=== PATIENT | male | born 1960 | race Caucasian/White ===

== ENCOUNTER 2016-07-28 15:03 | Emergency (ER) | payer MEDICAID ==
--- NOTE | 2016-07-28 15:54 | EDM.PDOC ---
ED HPI NEURO - General Chief Complaint: Neuro Symptoms/Deficits Stated Complaint: CONFUSION Time Seen by Provider: 07/28/16 15:34 Source: Reports: Patient, Family, RN notes reviewed History Limitations: Reports: No limitations - History of Present Illness INITIAL COMMENTS - FREE TEXT/NARRATIVE: 56-year-old gentleman presents emergency department today with complaint of confusion states this happened today he couple hours ago he had awoken from sleep was confused in that he couldn't remember specific memory details about what he does for living with his does for living what task he had to do for the day, by the time he presents to the emergency room all his memories have returned he has no loss of memory he denies any focal neurologic deficit - Related Data Allergies/ADRs: Allergies Allergy/AdvReac Type Severity Reaction Status Date / Time morphine sulfate AdvReac Change Verified 10/27/15 14:05 [From MS Contin] Mental Status Home Meds: Home Meds Harley Cit/D3/K/Mag Ox/Stron/Bor [Theracal D2000] 400 - 500 mg PO BID 01/25/13 [ History] Citalopram Hydrobromide [Celexa] 40 mg PO DAILY 01/25/13 [History] Cyanocobalamin (Vitamin B-12) [B-12] 1,000 mcg PO DAILY 01/25/13 [History] Lisinopril 10 mg PO DAILY 01/25/13 [History] Multivitamin with Minerals [Multiple Vitamin] 1 tab PO DAILY 01/25/13 [History] Vitamin B Complex [B Complex] 100 mg PO DAILY 01/25/13 [History] amLODIPine [Norvasc] 5 mg PO BEDTIME 03/02/14 [History] sitaGLIPtin Phos/Metformin HCl [Janumet Xr 50-1,000 mg Tablet] 50 - 1,000 mg PO DAILY 03/02/14 [History] Aspirin [Adult Low Dose Aspirin EC] 81 mg PO DAILY 09/06/14 [History] Cholecalciferol (Vitamin D3) [Vitamin D3] 3,000 unit PO DAILY 09/06/14 [History] Acetaminophen [Tylenol] 650 mg PO Q6H PRN 01/27/15 [History] HYDROmorphone HCl [Exalgo] 32 mg PO DAILY 01/27/15 [History] Liraglutide [Victoza] 1.8 mg SUBCUT DAILY 01/27/15 [History] oxyCODONE [Oxycodone HCl] 10 mg PO Q4H PRN 04/29/15 [History] Amitriptyline [Elavil] 75 mg PO BEDTIME 05/27/15 [History] Cyclobenzaprine [Flexeril] 1 tab PO Q8H PRN 05/27/15 [History] Magnesium 1 tab PO ASDIRECTED 05/27/15 [History] Omeprazole 1 cap PO BEDTIME 05/27/15 [History] Simvastatin [Zocor] 1 tab PO DAILY 05/27/15 [History] Past Medical History Cardiovascular History: Reports: CAD, High cholesterol, Hypertension, Stents Other Respiratory History: uses CPAP Musculoskeletal History: Reports: Back pain, chronic Other Musculoskeletal History: Brown recluse spider bite in past Other Neuro History: balance issue after back fracture Psychiatric History: Reports: Anxiety Endocrine/Metabolic History: Reports: Diabetes, type II Hematologic History: Reports: B12 deficiency Other Dermatologic History: brown recluse bit on right mid-back, did have it surgerically repaired. - Past Surgical History Cardiovascular Surgical History: Reports: Coronary artery stent Other Cardiovascular Surgeries/Procedures: Cardiac stents x 3 GI Surgical History: Reports: Bariatric procedure Other Neurological Surgeries/Procedures: kiphroplasty. Lumbar procedure 30 to 60 days ago with hardware and fusion. Musculoskeletal Surgical History: Reports: Other (see below) Other Musculoskeletal Surgeries/Procedures:: ACLreconstruction, Achilles tendon surgery x3 fx leg broken back, BACK "SHOTS" INJECTED GLUE IN BACK Social & Family History - Family History Oncologic: Reports: Pancreatic - Tobacco Use Smoking Status *Q: Never Smoker Years of Tobacco use: 20 Used Tobacco, but Quit: Yes Month Tobacco Last Used: apr Second Hand Smoke Exposure: No - Caffeine Use Caffeine Use: Reports: Coffee, Soda - Alcohol Use Days Per Week of Alcohol Use: 1 Number of Drinks Per Day: 2 Total Drinks Per Week: 2 - Recreational Drug Use Recreational Drug Use: No ED ROS GENERAL - Review of Systems Review Of Systems: See Below Constitutional: Reports: no symptoms HEENT: Reports: No symptoms Respiratory: Reports: No Symptoms Cardiovascular: Reports: No symptoms GI/Abdominal: Reports: No symptoms : Reports: no symptoms Musculoskeletal: Reports: no symptoms Skin: Reports: no symptoms (And) Neurological: Reports: Confusion Psychiatric: Reports: No symptoms ED EXAM, NEURO - Physical Exam Exam: See Below Exam Limited By: No limitations General Appearance: alert, WD/WN, no apparent distress Respiratory/Chest: no respiratory distress, lungs clear, normal breath sounds, no accessory muscle use Cardiovascular: regular rate, rhythm, no murmur Course - Vital Signs Last Recorded V/S: Last Vital Signs Temp 97.3 F 07/28/16 15:25 Pulse 83 07/28/16 16:48 Resp 16 07/28/16 16:48 BP 146/90 H 07/28/16 16:48 Pulse Ox 99 07/28/16 16:48 - Orders/Labs/Meds Labs: Laboratory Tests 07/28/16 07/28/16 07/28/16 Range/Units 16:06 16:06 16:06 WBC 8.8 (4.5-11.0) K/uL RBC 5.00 (4.30-5.90) M/uL Hgb 14.9 (12.0-15.0) g/dL Hct 43.7 (40.0-54.0) % MCV 87 (80-98) fL MCH 30 (27-31) pg MCHC 34 (32-36) % Plt Count 271 (150-400) K/uL Neut % (Auto) 76 H (36-66) % Lymph % (Auto) 16 L (24-44) % [place] % (Auto) 7 H (2-6) % Eos % (Auto) 1 L (2-4) % Baso % (Auto) 0 (0-1) % Sodium 142 (140-148) mmol/L Potassium 4.6 (3.6-5.2) mmol/L Chloride 104 (100-108) mmol/L Carbon Dioxide 29 (21-32) mmol/L Anion Gap 9.3 (5.0-14.0) mmol/L BUN 15 D (7-18) mg/dL Creatinine 0.9 (0.8-1.3) mg/dL Est Cr Clr Drug Dosing 98.41 mL/min Estimated GFR (MDRD) > 60 (>60) Glucose 164 H (74-106) mg/dL Calcium 8.5 (8.5-10.1) mg/dL Total Bilirubin 0.4 D (0.2-1.0) mg/dL AST 31 D (15-37) U/L ALT 48 D (12-78) U/L Alkaline Phosphatase 97 (46-116) U/L CK-MB (CK-2) (0-3.6) mg/mL Troponin I (0.000-0.056) ng/mL C-Reactive Protein 0.11 (0.0-0.3) mg/dL Total Protein 7.5 (6.4-8.2) g/dL Albumin 4.2 (3.4-5.0) g/dL Globulin 3.3 (2.3-3.5) g/dL Albumin/Globulin Ratio 1.3 (1.2-2.2) Urine Color Urine Appearance Urine pH (4.5-8.0) Ur Specific [place] (1.008-1.030) Urine Protein (NEGATIVE) mg/dL Urine Glucose (UA) (NEGATIVE) mg/dL Urine Ketones (NEGATIVE) mg/dL Urine Occult Blood (NEGATIVE) Urine Nitrite (NEGAITVE) Urine Bilirubin (NEGATIVE) Urine Urobilinogen (NORMAL) mg/dL Ur Leukocyte Esterase (NEGATIVE) Urine RBC (0-5) Urine WBC (0-5) Ur Epithelial Cells Amorphous Sediment Urine Bacteria Urine Mucus 07/28/16 07/28/16 Range/Units 16:06 16:27 WBC (4.5-11.0) K/uL RBC (4.30-5.90) M/uL Hgb (12.0-15.0) g/dL Hct (40.0-54.0) % MCV (80-98) fL MCH (27-31) pg MCHC (32-36) % Plt Count (150-400) K/uL Neut % (Auto) (36-66) % Lymph % (Auto) (24-44) % [place] % (Auto) (2-6) % Eos % (Auto) (2-4) % Baso % (Auto) (0-1) % Sodium (140-148) mmol/L Potassium (3.6-5.2) mmol/L Chloride (100-108) mmol/L Carbon Dioxide (21-32) mmol/L Anion Gap (5.0-14.0) mmol/L BUN (7-18) mg/dL Creatinine (0.8-1.3) mg/dL Est Cr Clr Drug Dosing mL/min Estimated GFR (MDRD) (>60) Glucose (74-106) mg/dL Calcium (8.5-10.1) mg/dL Total Bilirubin (0.2-1.0) mg/dL AST (15-37) U/L ALT (12-78) U/L Alkaline Phosphatase (46-116) U/L CK-MB (CK-2) 1.2 (0-3.6) mg/mL Troponin I < 0.017 (0.000-0.056) ng/mL C-Reactive Protein (0.0-0.3) mg/dL Total Protein (6.4-8.2) g/dL Albumin (3.4-5.0) g/dL Globulin (2.3-3.5) g/dL Albumin/Globulin Ratio (1.2-2.2) Urine Color [place] Urine Appearance Slightly cloudy Urine pH 5.0 (4.5-8.0) Ur Specific [place] 1.025 (1.008-1.030) Urine Protein 30 H (NEGATIVE) mg/dL Urine Glucose (UA) Normal (NEGATIVE) mg/dL Urine Ketones 15 H (NEGATIVE) mg/dL Urine Occult Blood Negative (NEGATIVE) Urine Nitrite Negative (NEGAITVE) Urine Bilirubin Negative (NEGATIVE) Urine Urobilinogen 4 (NORMAL) mg/dL Ur Leukocyte Esterase Negative (NEGATIVE) Urine RBC 0-5 (0-5) Urine WBC 0-5 (0-5) Ur Epithelial Cells Few Amorphous Sediment Not seen Urine Bacteria Few Urine Mucus Few Departure - Departure Time of Disposition: 17:23 Disposition: Home, Self-Care 01 Condition: good Clinical Impression: Fugue Forms: ED Department Discharge Additional Instructions: Please followup with your primary care provider in 3-5 days if not better, please call return to the emergency department with worsening of symptoms. - Assessment/Plan Plan: Assessment Acuity = acute Site and laterality = shifting attention Etiology = suspicious for fugue Manifestations = none Location of injury = home Lab values = CBC, CMP unremarkable urinalysis specific gravity 1.025 consistent with intravascular volume depletion Plan He remained asymptomatic in the emergency department he does admit that he has not been going to counseling and rehabilitation as usual plan is to follow up with that and follow up with primary care as needed Patient was in agreement with the plan all questions were answered, they were instructed to return to the emergency department or call for worsening symptoms. This note was dictated using dragon voice recognition software please call with any questions.
[2016-07-28 16:48] VITALS: BP 146/90
== END 2016-07-28 17:29 | disposition home or self-care (01) ==
LOC: JP.ED 15:03
DX: R68.89 Other general symptoms and signs (principal); I25.10 Atherosclerotic heart disease of native coronary artery without angina pectoris; E78.00 Pure hypercholesterolemia, unspecified; I10 Essential (primary) hypertension; G89.29 Other chronic pain; M54.9 Dorsalgia, unspecified; E11.9 Type 2 diabetes mellitus without complications; Z87.891 Personal history of nicotine dependence; Z95.5 Presence of coronary angioplasty implant and graft; Z98.890 Other specified postprocedural states; Z79.899 Other long term (current) drug therapy; Z79.82 Long term (current) use of aspirin; Z88.5 Allergy status to narcotic agent
CPT/HCPCS: 36415; 80053; 81001; 82553; 84484; 85025; 86140; 99282; 99285

== ENCOUNTER 2017-08-31 15:31 | Emergency (ER) | payer MEDICARE ==
--- NOTE | 2017-08-31 16:15 | EDM.PDOC ---
Addendum entered and electronically signed by Michael Wilcox MD 08/31/17 22: 39: Hand X-ray reveals a fx of the proximal phalanx of the R thumb. A thumb spica splint was applied, ortho referral made. Original Note: <Michael Wilcox - Last Filed: 08/31/17 21:56> ED HPI GENERAL MEDICAL PROBLEM - General Chief Complaint: General Stated Complaint: MEDICAL VIA [facility] Time Seen by Provider: 08/31/17 16:12 - Related Data Allergies Allergy/AdvReac Type Severity Reaction Status Date / Time morphine sulfate AdvReac Change Verified 08/31/17 15:46 [From MS Contin] Mental Status Home Meds: Home Meds Harley Cit/D3/K/Mag Ox/Stron/Bor [Theracal D2000] 400 - 500 mg PO BID 01/25/13 [ History] Citalopram Hydrobromide [Celexa] 40 mg PO DAILY 01/25/13 [History] Cyanocobalamin (Vitamin B-12) [B-12] 1,000 mcg PO DAILY 01/25/13 [History] Lisinopril 10 mg PO DAILY 01/25/13 [History] Multivitamin with Minerals [Multiple Vitamin] 1 tab PO DAILY 01/25/13 [History] Vitamin B Complex [B Complex] 100 mg PO DAILY 01/25/13 [History] amLODIPine [Norvasc] 5 mg PO BEDTIME 03/02/14 [History] sitaGLIPtin Phos/Metformin HCl [Janumet Xr 50-1,000 mg Tablet] 50 - 1,000 mg PO DAILY 03/02/14 [History] Aspirin [Adult Low Dose Aspirin EC] 81 mg PO DAILY 09/06/14 [History] Cholecalciferol (Vitamin D3) [Vitamin D3] 3,000 unit PO DAILY 09/06/14 [History] Acetaminophen [Tylenol] 650 mg PO Q6H PRN 01/27/15 [History] Liraglutide [Victoza] 1.8 mg SUBCUT DAILY 01/27/15 [History] oxyCODONE [Oxycodone HCl] 10 mg PO Q4H PRN 04/29/15 [History] Amitriptyline [Elavil] 75 mg PO BEDTIME 05/27/15 [History] Magnesium 1 tab PO ASDIRECTED 05/27/15 [History] Omeprazole 1 cap PO BEDTIME 05/27/15 [History] Simvastatin [Zocor] 1 tab PO DAILY 05/27/15 [History] Course - Vital Signs Text/Narrative:: Had to wait for an extended period in the ER as the only person that was available to pick him up was his girlfriend and she had to work tonight until nearly 10:30 pm. Last Recorded V/S: Last Vital Signs Temp 35.3 C 08/31/17 15:42 Pulse 67 08/31/17 17:53 Resp 17 08/31/17 17:53 BP 141/60 H 08/31/17 21:38 Pulse Ox 93 L 08/31/17 17:53 - Orders/Labs/Meds Orders: Active Orders 24 hr Category Date Time Status Cardiac Monitoring [RC] .As Directed Care 08/31/17 16:50 Active Hand Comp Min 3V Rt [CR] Stat Exams 08/31/17 22:28 Taken Head wo Cont [CT] Stat Exams 08/31/17 16:10 Taken DRUG SCREEN, URINE [URCHEM] Stat Lab 08/31/17 18:24 Ordered UA W/MICROSCOPIC [URIN] Urgent Lab 08/31/17 18:24 Ordered Labs: Laboratory Tests 08/31/17 08/31/17 08/31/17 Range/Units 15:36 15:36 15:36 WBC 10.7 (4.5-11.0) K/uL RBC 4.61 (4.30-5.90) M/uL Hgb 14.1 (12.0-15.0) g/dL Hct 39.9 L (40.0-54.0) % MCV 87 (80-98) fL MCH 31 (27-31) pg MCHC 35 (32-36) % Plt Count 274 (150-400) K/uL Neut % (Auto) 70 H (36-66) % Lymph % (Auto) 22 L (24-44) % Webb % (Auto) 7 H (2-6) % Eos % (Auto) 1 L (2-4) % Baso % (Auto) 0 (0-1) % Sodium 131 L (140-148) mmol/L Potassium 3.7 (3.6-5.2) mmol/L Chloride 95 L (100-108) mmol/L Carbon Dioxide 21 (21-32) mmol/L Anion Gap 18.7 H (5.0-14.0) mmol/L BUN 11 (7-18) mg/dL Creatinine 0.6 L (0.8-1.3) mg/dL Est Cr Clr Drug Dosing 143.63 mL/min Estimated GFR (MDRD) > 60 (>60) Glucose 214 H (74-106) mg/dL Calcium 7.7 L (8.5-10.1) mg/dL Total Bilirubin 0.3 (0.2-1.0) mg/dL AST 42 H (15-37) U/L ALT 64 (12-78) U/L Alkaline Phosphatase 71 (46-116) U/L Total Protein 6.9 (6.4-8.2) g/dL Albumin 3.8 (3.4-5.0) g/dL Globulin 3.1 (2.3-3.5) g/dL Albumin/Globulin Ratio 1.2 (1.2-2.2) Urine Color Urine Appearance Urine pH (4.5-8.0) Ur Specific [place] (1.008-1.030) Urine Protein (NEGATIVE) mg/dL Urine Glucose (UA) (NEGATIVE) mg/dL Urine Ketones (NEGATIVE) mg/dL Urine Occult Blood (NEGATIVE) Urine Nitrite (NEGAITVE) Urine Bilirubin (NEGATIVE) Urine Urobilinogen (NORMAL) mg/dL Ur Leukocyte Esterase (NEGATIVE) Urine RBC (0-5) Urine WBC (0-5) Ur Epithelial Cells Amorphous Sediment Urine Bacteria Urine Mucus Urine Opiates Screen (NEGATIVE) Ur Oxycodone Screen (NEGATIVE) Urine Methadone Screen (NEGATIVE) Ur Propoxyphene Screen (NEGATIVE) Ur Barbiturates Screen (NEGATIVE) Ur Tricyclics Screen (NEGATIVE) Ur Phencyclidine Scrn (NEGATIVE) Ur Amphetamine Screen (NEGATIVE) U Methamphetamines Scrn (NEGATIVE) Urine MDMA Screen (NEGATIVE) U Benzodiazepines Scrn (NEGATIVE) U Cocaine Metab Screen (NEGATIVE) U Marijuana (THC) Screen (NEGATIVE) Ethyl Alcohol 199 mg/dL 08/31/17 08/31/17 Range/Units 18:24 18:24 WBC (4.5-11.0) K/uL RBC (4.30-5.90) M/uL Hgb (12.0-15.0) g/dL Hct (40.0-54.0) % MCV (80-98) fL MCH (27-31) pg MCHC (32-36) % Plt Count (150-400) K/uL Neut % (Auto) (36-66) % Lymph % (Auto) (24-44) % Webb % (Auto) (2-6) % Eos % (Auto) (2-4) % Baso % (Auto) (0-1) % Sodium (140-148) mmol/L Potassium (3.6-5.2) mmol/L Chloride (100-108) mmol/L Carbon Dioxide (21-32) mmol/L Anion Gap (5.0-14.0) mmol/L BUN (7-18) mg/dL Creatinine (0.8-1.3) mg/dL Est Cr Clr Drug Dosing mL/min Estimated GFR (MDRD) (>60) Glucose (74-106) mg/dL Calcium (8.5-10.1) mg/dL Total Bilirubin (0.2-1.0) mg/dL AST (15-37) U/L ALT (12-78) U/L Alkaline Phosphatase (46-116) U/L Total Protein (6.4-8.2) g/dL Albumin (3.4-5.0) g/dL Globulin (2.3-3.5) g/dL Albumin/Globulin Ratio (1.2-2.2) Urine Color Yellow Urine Appearance Clear Urine pH 5.0 (4.5-8.0) Ur Specific [place] 1.010 (1.008-1.030) Urine Protein Negative (NEGATIVE) mg/dL Urine Glucose (UA) 1000 H (NEGATIVE) mg/dL Urine Ketones Negative (NEGATIVE) mg/dL Urine Occult Blood Negative (NEGATIVE) Urine Nitrite Negative (NEGAITVE) Urine Bilirubin Negative (NEGATIVE) Urine Urobilinogen Normal (NORMAL) mg/dL Ur Leukocyte Esterase Negative (NEGATIVE) Urine RBC Not seen (0-5) Urine WBC Not seen (0-5) Ur Epithelial Cells Rare Amorphous Sediment Not seen Urine Bacteria Not seen Urine Mucus Not seen Urine Opiates Screen Negative (NEGATIVE) Ur Oxycodone Screen Positive H (NEGATIVE) Urine Methadone Screen Negative (NEGATIVE) Ur Propoxyphene Screen Negative (NEGATIVE) Ur Barbiturates Screen Negative (NEGATIVE) Ur Tricyclics Screen Negative (NEGATIVE) Ur Phencyclidine Scrn Negative (NEGATIVE) Ur Amphetamine Screen Negative (NEGATIVE) U Methamphetamines Scrn Negative (NEGATIVE) Urine MDMA Screen Negative (NEGATIVE) U Benzodiazepines Scrn Negative (NEGATIVE) U Cocaine Metab Screen Negative (NEGATIVE) U Marijuana (THC) Screen Negative (NEGATIVE) Ethyl Alcohol mg/dL Meds: Medications Discontinued Medications Generic Name Dose Route Start Last Admin Trade Name Freq PRN Reason Stop Dose Admin Sodium Chloride 1,000 mls @ 999 mls/hr 08/31/17 17:30 08/31/17 18:00 Normal Saline IV 999 mls/hr ASDIRECTED FERNANDA Administration Departure - Departure Time of Disposition: 22:25 Disposition: Home, Self-Care 01 Condition: Good Clinical Impression: Overuse of medication Alcohol intoxication Qualifiers: Complication of substance-induced condition: with unspecified complication Qualified Code(s): F10.929 - Alcohol use, unspecified with intoxication, unspecified Fall Qualifiers: Encounter type: initial encounter Qualified Code(s): W19.XXXA - Unspecified fall, initial encounter Clinical Impression: (Ruled Out): Noncompliance with medication treatment due to overuse of medication - Discharge Information Instructions: Accidental Overdose, Alcohol Intoxication, [id number], Metacarpal Fracture, [id number], Fall Prevention in the Home Referrals: PCP,None [Primary Care Provider] - Forms: ED Department Discharge Additional Instructions: Do not take more of your amitryptyline than is recommended by your doctor. Do not drink alcohol when taking your medications. Recheck with your provider next week, call for an appt. Follow up with orthopedics next week. Wear your splint at all times. No use of the R hand. Ibuprofen or acetaminophen as needed for pain relief. - My Orders Last 24 Hours: My Active Orders 08/31/17 16:10 Head wo Cont [CT] Stat 08/31/17 16:50 Cardiac Monitoring [RC] .As Directed 08/31/17 18:24 DRUG SCREEN, URINE [URCHEM] Stat UA W/MICROSCOPIC [URIN] Urgent - Assessment/Plan Last 24 Hours: My Active Orders 08/31/17 16:10 Head wo Cont [CT] Stat 08/31/17 16:50 Cardiac Monitoring [RC] .As Directed 08/31/17 18:24 DRUG SCREEN, URINE [URCHEM] Stat UA W/MICROSCOPIC [URIN] Urgent <Lucy Delgado - Last Filed: 09/01/17 08:00> ED HPI GENERAL MEDICAL PROBLEM - General Source of Information: Reports: Patient History Limitations: Reports: No Limitations - History of Present Illness INITIAL COMMENTS - FREE TEXT/NARRATIVE: pt arrived with a history of being at the [facility] today. He had about 7 drinks and he went to leave he passed out and fell to the ground without breaking his fall. He did loose control of hais bladder and did soil himself. There was no definite seizure activity noted. Onset: Today, Sudden Duration: Hour(s):, Other (Pt is awake and answering questions. ) Location: Reports: Head, Other (pt has swelling over the rt cheek area. ) Associated Symptoms: Reports: Nausea/Vomiting Past Medical History - Past Health History Medical/Surgical History: Denies Medical/Surgical History HEENT History: Reports: Impaired Vision Cardiovascular History: Reports: CAD, High Cholesterol, Hypertension, Stents Respiratory History: Reports: Sleep Apnea Other Respiratory History: uses CPAP Musculoskeletal History: Reports: Back Pain, Chronic, Fracture Other Musculoskeletal History: Brown recluse spider bite in past Neurological History: Reports: Other (See Below) Other Neuro History: balance issue after back fracture. spinal fracture Psychiatric History: Reports: Anxiety Endocrine/Metabolic History: Reports: Diabetes, Type II Hematologic History: Reports: B12 Deficiency Other Dermatologic History: brown recluse bit on right mid-back, did have it surgerically repaired/debrieded. - Past Surgical History Cardiovascular Surgical History: Reports: Coronary Artery Stent GI Surgical History: Reports: Bariatric Procedure Other Neurological Surgeries/Procedures: kiphroplasty. Lumbar procedure with hardware and fusion x 3. Musculoskeletal Surgical History: Reports: Arthroscopic Knee, Other (See Below) Other Musculoskeletal Surgeries/Procedures:: achilles tendon surgery Social & Family History - Family History Oncologic: Reports: Pancreatic - Tobacco Use Smoking Status *Q: Never Smoker - Caffeine Use Caffeine Use: Reports: Coffee, Soda - Alcohol Use Days Per Week of Alcohol Use: 2 Number of Drinks Per Day: 4 Total Drinks Per Week: 8 - Recreational Drug Use Recreational Drug Use: Yes Recreational Drug Type: Reports: Marijuana/Hashish Recreational Drug Use Frequency: Not Used In Over 6 Months ED ROS GENERAL - Review of Systems Review Of Systems: See Below Constitutional: Reports: No Symptoms HEENT: Reports: Other (pt has ) Respiratory: Reports: No Symptoms Cardiovascular: Reports: No Symptoms Endocrine: Reports: No Symptoms GI/Abdominal: Reports: Nausea, Vomiting : Reports: No Symptoms Musculoskeletal: Reports: No Symptoms Skin: Reports: No Symptoms ED EXAM, GENERAL - Physical Exam Exam: See Below Free Text/Narrative:: pt arrived after being at the [facility] and leaving after having about 7 drinks. He went to the parking lot and feel straight down and hit his face. Exam Limited By: No Limitations General Appearance: Alert, Other (PUPILS LARGE BUT EQUAL AND REACTIVE. ) Ears: Normal TMs Nose: Normal Inspection Throat/Mouth: Normal Inspection Head: Other (PT HAS A BRUISE ON HIS RT CHEEK. ) Neck: Normal Inspection Respiratory/Chest: No Respiratory Distress Cardiovascular: Regular Rate, Rhythm GI/Abdominal: Soft, Non-Tender (Male) Exam: Deferred Rectal (Males) Exam: Deferred Back Exam: Normal Inspection Extremities: Other (PT HAS SOME ABRASIONS ON BOTH KNEES. ) Neurological: Alert, Slow to Respond Psychiatric: Flat Affect Course - Orders/Labs/Meds Meds: Medications Discontinued Medications Generic Name Dose Route Start Last Admin Trade Name Freq PRN Reason Stop Dose Admin Sodium Chloride 1,000 mls @ 999 mls/hr 08/31/17 17:30 08/31/17 18:00 Normal Saline IV 999 mls/hr ASDIRECTED [facility] Administration - Re-Assessments/Exams Free Text/Narrative Re-Assessment/Exam: 08/31/17 17:41 CAT SCAN OF THE HEAD DID NOT SHOW ACUTE FINDINGS. hE HAS A BRUIS ON HIS RT CHEEK AND THE ORBIT LOOKS GOOD. hE TOLD ME LATER THAT HE HAD TAKEN 4 ELAVIL 75 BECAUSE HE WANTED TO TAKE A NAP THIS AFTERNOON BUT INSTEAD HE WENT TO THE [facility] AND HAD APROX 7 DRINKS. hIS ETOH LEVEL WAS GREATER THN 2. hIS LAST TETANUS WAS IN 3013. 09/01/17 07:58 Once the pt woke up he was noted to have a painful rt thumb. an xray was obtained which showed a fracture of the proximal phalanx near the MP joint. He was placed in a thumb spika, he will follow up with this fracture.
--- NOTE | 2017-08-31 17:08 | CR ---
Sinus Less 3V INDICATION: blow to rt cheek need to look at the orbit. COMPARISON: None FINDINGS: 2 views. No evidence of orbital fractures on these views. Visualized paranasal sinuses are clear.
[2017-08-31] MEDS ORDERED: Sodium Chloride 0.9% 1,000 ML IV SCH (17:30)
[2017-08-31 21:38] VITALS: BP 141/60
--- NOTE | 2017-09-01 09:16 | CR ---
Hand Comp Min 3V Rt INDICATION: pain after a fall COMPARISON: None FINDINGS: 3 views. There is a fracture at the base of the first metacarpal with mild displacement. Bony fragments projected along the dorsal aspect of the distal radius on the lateral view appear we ll-corticated and may be due to old trauma. Please correlate clinically for tenderness over this area . There are vascular calcifications and degenerative change.
== END 2017-08-31 23:01 | disposition home or self-care (01) ==
LOC: JP.ED 15:31
DX: S80.212A Abrasion, left knee, initial encounter (principal); S80.211A Abrasion, right knee, initial encounter; F10.129 Alcohol abuse with intoxication, unspecified; Z91.14 Patient's other noncompliance with medication regimen; Z88.5 Allergy status to narcotic agent; Z79.899 Other long term (current) drug therapy; Z79.82 Long term (current) use of aspirin; W19.XXXA Unspecified fall, initial encounter
CPT/HCPCS: 29125; 36415; 70210; 70450; 73130; 80053; 80305; 81001; 85025; 99285; G0480; J7030

== ENCOUNTER 2018-07-10 13:07 | Emergency (ER) | payer MEDICARE ==
--- NOTE | 2018-07-10 13:52 | EDM.PDOC ---
ED HPI GENERAL MEDICAL PROBLEM - General Chief Complaint: General Stated Complaint: SOB/ CHEST CONGESTION Time Seen by Provider: 07/10/18 13:44 Source of Information: Reports: Patient, Old Records, Provider, RN Notes Reviewed History Limitations: Reports: No Limitations - History of Present Illness INITIAL COMMENTS - FREE TEXT/NARRATIVE: 58-year-old gentleman presents emergency department day for further evaluation, he was evaluated in clinic at which time thought to be short of breath chest x- ray was done shows that he has a right upper lung mass pneumonia versus malignancy also does have abnormal white count peripheral smear does not reveal any pathology he is not sure why he is here Lower Back Pain Score (Numeric/FACES): 5 - Related Data Allergies Allergy/AdvReac Type Severity Reaction Status Date / Time morphine sulfate AdvReac Change Verified 07/10/18 13:30 [From MS Morales] Mental Status Home Meds: Home Meds Harley Cit/D3/K/Mag Ox/Stron/Bor [Theracal D2000] 400 - 500 mg PO BID 01/25/13 [ History] Citalopram Hydrobromide [Celexa] 40 mg PO DAILY 01/25/13 [History] Cyanocobalamin (Vitamin B-12) [B-12] 1,000 mcg PO DAILY 01/25/13 [History] Lisinopril 10 mg PO DAILY 01/25/13 [History] Multivitamin with Minerals [Multiple Vitamin] 1 tab PO DAILY 01/25/13 [History] Vitamin B Complex [B Complex] 100 mg PO DAILY 01/25/13 [History] amLODIPine [Norvasc] 5 mg PO BEDTIME 03/02/14 [History] sitaGLIPtin Phos/Metformin HCl [Janumet Xr 50-1,000 mg Tablet] 50 - 1,000 mg PO BID 03/02/14 [History] Aspirin [Adult Low Dose Aspirin EC] 325 mg PO DAILY 09/06/14 [History] Cholecalciferol (Vitamin D3) [Vitamin D3] 3,000 unit PO DAILY 09/06/14 [History] Acetaminophen [Tylenol] 650 mg PO Q6H PRN 01/27/15 [History] oxyCODONE [Oxycodone HCl] 10 mg PO Q4H PRN 04/29/15 [History] Amitriptyline [Elavil] 75 mg PO BEDTIME 05/27/15 [History] Magnesium 1 tab PO DAILY 05/27/15 [History] Omeprazole 1 cap PO BEDTIME 05/27/15 [History] Simvastatin [Zocor] 1 tab PO DAILY 05/27/15 [History] Past Medical History HEENT History: Reports: Impaired Vision Cardiovascular History: Reports: CAD, High Cholesterol, Hypertension, Stents Respiratory History: Reports: Sleep Apnea Other Respiratory History: uses CPAP Musculoskeletal History: Reports: Back Pain, Chronic, Fracture Other Musculoskeletal History: Brown recluse spider bite in past Neurological History: Reports: Other (See Below) Other Neuro History: balance issue after back fracture. spinal fracture Psychiatric History: Reports: Anxiety Endocrine/Metabolic History: Reports: Diabetes, Type II Hematologic History: Reports: B12 Deficiency Other Dermatologic History: brown recluse bit on right mid-back, did have it surgerically repaired/debrieded. - Infectious Disease History Infectious Disease History: Reports: Chicken Pox, Measles, Mumps - Past Surgical History Cardiovascular Surgical History: Reports: Coronary Artery Stent GI Surgical History: Reports: Bariatric Procedure Other Neurological Surgeries/Procedures: kiphroplasty. Lumbar procedure with hardware and fusion x 3. Musculoskeletal Surgical History: Reports: Arthroscopic Knee, Other (See Below) Other Musculoskeletal Surgeries/Procedures:: achilles tendon surgery Social & Family History - Family History Oncologic: Reports: Pancreatic - Tobacco Use Smoking Status *Q: Never Smoker Second Hand Smoke Exposure: No - Caffeine Use Caffeine Use: Reports: Coffee, Energy Drinks, Soda, Tea - Alcohol Use Days Per Week of Alcohol Use: 1 Number of Drinks Per Day: 3 Total Drinks Per Week: 3 - Recreational Drug Use Recreational Drug Use: No ED ROS GENERAL - Review of Systems Review Of Systems: See Below Constitutional: Reports: Weakness, Weight Loss. Denies: Fever, Chills HEENT: Reports: No Symptoms Respiratory: Reports: Shortness of Breath. Denies: Wheezing, Cough, Sputum Cardiovascular: Reports: No Symptoms GI/Abdominal: Reports: No Symptoms : Reports: No Symptoms Musculoskeletal: Reports: No Symptoms Skin: Reports: No Symptoms Neurological: Reports: No Symptoms ED EXAM, GENERAL - Physical Exam Exam: See Below Exam Limited By: No Limitations General Appearance: Alert, WD/WN, No Apparent Distress Respiratory/Chest: No Respiratory Distress, Lungs Clear, Normal Breath Sounds, No Accessory Muscle Use, Chest Non-Tender Cardiovascular: Regular Rate, Rhythm, No Murmur GI/Abdominal: Soft, Non-Tender Course - Vital Signs Last Recorded V/S: Last Vital Signs Temp 95.5 F 07/10/18 13:43 Pulse 76 07/10/18 13:43 Resp 20 07/10/18 13:43 BP 151/85 H 07/10/18 13:43 Pulse Ox 98 07/10/18 13:43 - Orders/Labs/Meds Orders: Active Orders 24 hr Category Date Time Status Sodium Chloride 0.9% [Normal Saline] 1,000 ml Med 07/10/18 15:45 Active IV ASDIRECTED Medication Orders Sodium Chloride (Normal Saline) 1,000 mls @ 999 mls/hr IV ASDIRECTED FERNANDA Last Admin: 07/10/18 15:49 Dose: 999 mls/hr Labs: Laboratory Tests 07/10/18 Range/Units 13:57 Sodium 137 L (140-148) mmol/L Potassium 4.6 (3.6-5.2) mmol/L Chloride 103 (100-108) mmol/L Carbon Dioxide 25 (21-32) mmol/L Anion Gap 13.6 (5.0-14.0) mmol/L BUN 20 H D (7-18) mg/dL Creatinine 0.7 L (0.8-1.3) mg/dL Est Cr Clr Drug Dosing 117.83 mL/min Estimated GFR (MDRD) > 60 (>60) Glucose 91 (74-106) mg/dL Calcium 8.4 L (8.5-10.1) mg/dL Total Bilirubin 0.3 (0.2-1.0) mg/dL AST 12 L (15-37) U/L ALT 15 D (12-78) U/L Alkaline Phosphatase 81 (46-116) U/L C-Reactive Protein 12.13 H (0.0-0.3) mg/dL Total Protein 6.4 (6.4-8.2) g/dL Albumin 2.1 L (3.4-5.0) g/dL Globulin 4.3 H (2.3-3.5) g/dL Albumin/Globulin Ratio 0.5 L (1.2-2.2) Meds: Medications Generic Name Dose Route Start Last Admin Trade Name Freq PRN Reason Stop Dose Admin Sodium Chloride 1,000 mls @ 999 mls/hr 07/10/18 15:45 07/10/18 15:49 Normal Saline IV 999 mls/hr ASDIRECTED FERNANDA Administration Discontinued Medications Generic Name Dose Route Start Last Admin Trade Name Farida PRN Reason Stop Dose Admin Sodium Chloride 75 mls @ 3.5 mls/sec 07/10/18 13:56 Normal Saline IV 07/10/18 13:57 ONETIME ONE Iopamidol 100 ml 07/10/18 14:00 Isovue-300 (61%) IV 07/10/18 14:01 . DIRECTED FERNANDA Sodium Chloride 10 ml 07/10/18 13:56 07/10/18 14:22 Saline Flush FLUSH 07/10/18 13:57 10 ml ONETIME ONE Administration Departure - Departure Time of Disposition: 15:58 Disposition: Home, Self-Care 01 Condition: Fair Clinical Impression: Cavitating mass in right upper lung lobe - Discharge Information Referrals: Alyssia Gill PA [Primary Care Provider] - Forms: ED Department Discharge Additional Instructions: Please report for your needle biopsy on Monday, your primary care provider will get the results on Monday an appointment for you will be set up with Dr. Watts on , call or return emergency department worsening of symptoms - My Orders Last 24 Hours: My Active Orders 07/10/18 15:45 Sodium Chloride 0.9% [Normal Saline] 1,000 ml IV ASDIRECTED - Assessment/Plan Last 24 Hours: My Active Orders 07/10/18 15:45 Sodium Chloride 0.9% [Normal Saline] 1,000 ml IV ASDIRECTED Plan: Assessment Acuity = acute Site and laterality = lung mass right upper lobe Etiology = infectious versus neoplastic Manifestations = dyspnea Location of injury = Home Lab values = CT scan describes a lung mass above Plan He is set up for a CT-guided lung biopsy Monday morning 8 AM, called discussed case with Dr. Watts [place] 1530 Dr. Watts will see him July 19 for further evaluation. Also discussed the case with his primary care provider Nedra Gill his pathology will be available on Monday if the pathology shows neoplastic tissue he will be set up for a PET scan prior to Dr. Watts's appointment This note was dictated using [employer] voice recognition software please call with any questions on syntax or grammar.
[2018-07-10] MEDS ORDERED: Sodium Chloride 0.9% 10 ML Syringe FLUSH ONE (13:56)
[2018-07-10] MEDS ORDERED: Sodium Chloride 0.9% 75 ML IV ONE (13:56)
[2018-07-10] MEDS ORDERED: Iopamidol 612 MG/ML 100 ML Bottle IV SCH (14:00)
--- NOTE | 2018-07-10 15:31 | CRLCT ---
INDICATION: Cough. Right upper lobe mass. TECHNIQUE: CT chest without contrast. COMPARISON: June 11, 2013. FINDINGS: Lungs and pleural: There is a 6 cm masslike infiltrate in the right upper lobe with central cavitation and air bronchograms. This measures approximately 7 x 6 cm as measured on series 3, image 27. Small patchy ill-defined infiltrates are surrounding this mass. Numerous small ground-glass infiltrates are also scattered throughout both lungs. No pleural effusions, pleural thickening, or pneumothorax. Heart and vasculature: Heart size is normal. Thoracic aorta and pulmonary artery are normal in caliber.Coronary artery atherosclerosis is present. Lymph nodes/mediastinum: No mediastinal, hilar, or axillary adenopathy. Thyroid gland is normal. Chest wall: No masses. Upper abdomen: There are postsurgical changes involving the stomach. Otherwise unremarkable. Bones: Unremarkable for age. IMPRESSION: A 6 cm masslike infiltrate with central cavitation and air bronchograms is in the right upper lobe. Smaller patchy infiltrates are scattered throughout both lungs but most prevalent around the right upper lobe mass. This likely represents an infectious process. However, a neoplasm is not excluded. Pulmonary consultation is recommended for management of these findings. Dictated by Dominik Gutierres MD @ 07/10/2018 3:29:44 PM Please note that all CT scans at this facility use dose modulation, iterative reconstruction, and/or weight-based dosing when appropriate to reduce radiation dose to as low as reasonably achievable. Dictated by: Dominik Gutierres MD @ 07/10/2018 15:29:53 (Electronically Signed)
[2018-07-10] MEDS ORDERED: Sodium Chloride 0.9% 1,000 ML IV SCH (15:45)
[2018-07-10 16:44] VITALS: BP 148/84
== END 2018-07-10 16:45 | disposition home or self-care (01) ==
LOC: JP.ED 13:07
DX: R91.8 Other nonspecific abnormal finding of lung field (principal); I10 Essential (primary) hypertension; E78.00 Pure hypercholesterolemia, unspecified; F41.9 Anxiety disorder, unspecified; E11.9 Type 2 diabetes mellitus without complications; Z79.82 Long term (current) use of aspirin; Z79.899 Other long term (current) drug therapy; Z88.5 Allergy status to narcotic agent
CPT/HCPCS: 36415; 71260; 80053; 86140; 96360; 99285; J7030; Q9967

== ENCOUNTER → 2018-08-15 | Outpatient (CLI) | payer MEDICARE ==
--- NOTE | 2018-08-15 10:13 | CRLCT ---
INDICATION: Lung abscess TECHNIQUE: CT chest without contrast. COMPARISON: July 30, 2018 FINDINGS: Lungs and pleural: Interval decrease in size of the previously seen right upper lobe pulmonary abscess. The soft tissue thickening in this area has improved. Air bronchograms persist. Central cavitation is unchanged. Remainder of the lungs are clear. No pleural effusions, pleural thickening, or pneumothorax. Heart and vasculature: Heart size is normal. Thoracic aorta and pulmonary artery are normal in caliber.Coronary artery atherosclerosis is present. Lymph nodes/mediastinum: No mediastinal, hilar, or axillary adenopathy. Thyroid gland is normal. Chest wall: No masses. Upper abdomen: Normal. Bones: Unremarkable for age. IMPRESSION: Persistent but improved right upper lobe pulmonary abscess. No other acute findings or changes from the prior exam. Please note that all CT scans at this facility use dose modulation, iterative reconstruction, and/or weight-based dosing when appropriate to reduce radiation dose to as low as reasonably achievable. Dictated by Dominik Gutierres MD @ Aug 15 2018 9:56AM Signed by Dr. Dominik Gutierres @ Aug 15 2018 10:11AM
== END ==
LOC: JP.CT 08:28
PROVIDERS: ATTEND Surgery
DX: J85.2 Abscess of lung without pneumonia (principal)
CPT/HCPCS: 71250

== ENCOUNTER 2018-09-13 08:16 | Emergency (ER) | payer MEDICARE ==
[2018-09-13] MEDS ORDERED: HYDROmorphone 1 MG/ML Syringe IVPUSH ONE ×2 (08:49→10:03)
--- NOTE | 2018-09-13 08:56 | EDM.PDOC ---
ED HPI GENERAL MEDICAL PROBLEM - General Chief Complaint: Abdominal Pain Stated Complaint: ABD PAIN Time Seen by Provider: 09/13/18 08:40 Source of Information: Reports: Patient, Old Records, RN History Limitations: Reports: No Limitations - History of Present Illness INITIAL COMMENTS - FREE TEXT/NARRATIVE: 58 yo male s/p gastric bypass remotely presents with RUQ abdominal pain that began last evening at rest and kept him awake most of the night. No hx of other abdominal surgeries. No fever, constipation, diarrhea or nausea. Has not eaten today. Onset: Sudden Onset Date: 09/12/18 Duration: Hour(s):, Constant Location: Reports: Abdomen Quality: Reports: Ache, Pressure Severity: Moderate Improves with: Reports: Other (sitting up) Worsens with: Reports: Other (lying flat) Context: Reports: Other (see HPI) Associated Symptoms: Reports: Loss of Appetite. 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) (none) Right Lower Abdomen Pain Score (Numeric/FACES): 9 - Related Data Allergies Allergy/AdvReac Type Severity Reaction Status Date / Time morphine sulfate AdvReac Change Verified 09/13/18 08:32 [From MS Contin] Mental Status Home Meds: Home Meds Harley Cit/D3/K/Mag Ox/Stron/Bor [Theracal D2000] 400 - 500 mg PO BID 01/25/13 [ History] Lisinopril 10 mg PO DAILY 01/25/13 [History] Multivitamin with Minerals [Multiple Vitamin] 1 tab PO DAILY 01/25/13 [History] Vitamin B Complex [B Complex] 100 mg PO DAILY 01/25/13 [History] amLODIPine [Norvasc] 10 mg PO BEDTIME 03/02/14 [History] Aspirin [Adult Low Dose Aspirin EC] 325 mg PO DAILY 09/06/14 [History] Cholecalciferol (Vitamin D3) [Vitamin D3] 3,000 unit PO DAILY 09/06/14 [History] Magnesium 250 mg PO DAILY 05/27/15 [History] Omeprazole 40 mg PO BEDTIME 05/27/15 [History] Simvastatin [Zocor] 10 mg PO DAILY 05/27/15 [History] Carvedilol 50 mg PO DAILY 07/13/18 [History] FLUoxetine HCl [Prozac] 20 mg PO DAILY 07/13/18 [History] Ferrous Fumarate [Hemocyte] 324 mg PO DAILY 07/13/18 [History] oxyCODONE HCl/Acetaminophen [Endocet 10-325 mg Tablet] 1 each PO Q8HR PRN [History] traZODone HCl [Trazodone HCl] 100 mg PO BEDTIME 07/13/18 [History] Past Medical History - Past Health History Medical/Surgical History: Denies Medical/Surgical History HEENT History: Reports: Impaired Vision Cardiovascular History: Reports: CAD, High Cholesterol, Hypertension, Stents Respiratory History: Reports: Sleep Apnea Other Respiratory History: uses CPAP Musculoskeletal History: Reports: Back Pain, Chronic, Fracture Other Musculoskeletal History: Brown recluse spider bite in past Neurological History: Reports: Other (See Below) Other Neuro History: balance issue after back fracture. spinal fracture Psychiatric History: Reports: Anxiety Endocrine/Metabolic History: Reports: Diabetes, Type II Hematologic History: Reports: B12 Deficiency Other Dermatologic History: brown recluse bit on right mid-back, did have it surgerically repaired/debrieded. - Infectious Disease History Infectious Disease History: Reports: Chicken Pox, Measles, Mumps - Past Surgical History Cardiovascular Surgical History: Reports: Coronary Artery Stent GI Surgical History: Reports: Bariatric Procedure Other Neurological Surgeries/Procedures: kiphroplasty. Lumbar procedure with hardware and fusion x 3. Musculoskeletal Surgical History: Reports: Arthroscopic Knee, Other (See Below) Other Musculoskeletal Surgeries/Procedures:: achilles tendon surgery Social & Family History - Family History Oncologic: Reports: Pancreatic - Tobacco Use Smoking Status *Q: Former Smoker Years of Tobacco use: 10 Used Tobacco, but Quit: Yes Month/Year Tobacco Last Used: 25 years ago - Caffeine Use Caffeine Use: Reports: Coffee, Soda Caffeine Use Comment: 1 cup per day, 3 sodas a day - Alcohol Use Days Per Week of Alcohol Use: 1 Number of Drinks Per Day: 2 Total Drinks Per Week: 2 - Recreational Drug Use Recreational Drug Use: No ED ROS GENERAL - Review of Systems Review Of Systems: See Below Constitutional: Reports: Decreased Appetite HEENT: Reports: No Symptoms Respiratory: Reports: No Symptoms Cardiovascular: Reports: No Symptoms Endocrine: Reports: No Symptoms GI/Abdominal: Reports: Abdominal Pain. Denies: Black Stool, Bloody Stool, Constipation, Diarrhea, Decreased Appetite, Distension, Flatus, Hematemesis, Hematochezia, Melena, Nausea, Vomiting : Reports: No Symptoms Musculoskeletal: Reports: No Symptoms Skin: Reports: No Symptoms Neurological: Reports: No Symptoms Psychiatric: Reports: No Symptoms ED EXAM, GI/ABD - Physical Exam Exam: See Below Exam Limited By: No Limitations General Appearance: Alert, WD/WN, No Apparent Distress Eyes: Bilateral: Normal Appearance Ears: Normal External Exam, Normal Canal, Hearing Grossly Normal Nose: Normal Inspection, No Blood Throat/Mouth: Normal Inspection, Normal Lips, Normal Oropharynx, Normal Voice, No Airway Compromise Head: Atraumatic, Normocephalic Neck: Normal Inspection Respiratory/Chest: No Respiratory Distress, Lungs Clear, Normal Breath Sounds, No Accessory Muscle Use Cardiovascular: Regular Rate, Rhythm, No Edema GI/Abdominal Exam: Soft, No Distention, Tender (RUQ), Abnormal Bowel Sounds ( decreased). No: Normal Bowel Sounds, Non-Tender, No Mass, Distended, Guarding, Rigid, Rebound Back Exam: Normal Inspection. No: CVA Tenderness (R), CVA Tenderness (L) Extremities: Normal Inspection, Normal Range of Motion, Non-Tender, No Pedal Edema Neurological: Alert, Oriented, CN II-XII Intact, Normal Cognition, No Motor/ Sensory Deficits Psychiatric: Normal Affect, Normal Mood Skin Exam: Warm, Dry, Intact, Normal Color, No Rash Course - Vital Signs Text/Narrative:: Dr. River called @ 12:43p Last Recorded V/S: Last Vital Signs Temp 35.6 C 09/13/18 08:36 Pulse 72 09/13/18 10:33 Resp 16 09/13/18 09:47 BP 126/68 09/13/18 10:33 Pulse Ox 94 L 09/13/18 09:47 - Orders/Labs/Meds Orders: Active Orders 24 hr Category Date Time Status Lactated Ringers [Ringers, Lactated] 1,000 ml Med 09/13/18 09:00 Active IV ASDIRECTED NS + KCl 20mEq/L [Normal Saline with 20 mEq KCl] 1,000 Med 09/13/18 11:30 Active ml IV ASDIRECTED Medication Orders Lactated Ringer's (Ringers, Lactated) 1,000 mls @ 500 mls/hr IV ASDIRECTED FERNANDA Last Admin: 09/13/18 09:05 Dose: 500 mls/hr Potassium Chloride/Sodium Chloride (Normal Saline With 20 Meq Kcl) 1,000 mls @ 150 mls/hr IV ASDIRECTED FERNANDA Last Admin: 09/13/18 11:44 Dose: 150 mls/hr Labs: Laboratory Tests 09/13/18 09/13/18 Range/Units 08:49 08:49 WBC 11.2 H (4.5-11.0) K/uL RBC 4.32 (4.30-5.90) M/uL Hgb 12.2 (12.0-15.0) g/dL Hct 38.3 L (40.0-54.0) % MCV 89 (80-98) fL MCH 28 (27-31) pg MCHC 32 (32-36) % Plt Count 264 (150-400) K/uL Sodium 137 L (140-148) mmol/L Potassium 3.5 L (3.6-5.2) mmol/L Chloride 100 (100-108) mmol/L Carbon Dioxide 29 (21-32) mmol/L Anion Gap 11.5 (5.0-14.0) mmol/L BUN 15 (7-18) mg/dL Creatinine 0.8 (0.8-1.3) mg/dL Est Cr Clr Drug Dosing 106.46 mL/min Estimated GFR (MDRD) > 60 (>60) Glucose 123 H (74-106) mg/dL Calcium 8.7 (8.5-10.1) mg/dL Total Bilirubin 0.5 D (0.2-1.0) mg/dL AST 40 H D (15-37) U/L ALT 68 D (12-78) U/L Alkaline Phosphatase 54 (46-116) U/L C-Reactive Protein 1.35 H (0.0-0.3) mg/dL Total Protein 6.1 L (6.4-8.2) g/dL Albumin 3.3 L (3.4-5.0) g/dL Globulin 2.8 (2.3-3.5) g/dL Albumin/Globulin Ratio 1.2 (1.2-2.2) Meds: Medications Generic Name Dose Route Start Last Admin Trade Name Freq PRN Reason Stop Dose Admin Lactated Ringer's 1,000 mls @ 500 mls/hr 09/13/18 09:00 09/13/18 09:05 Ringers, Lactated IV 500 mls/hr ASDIRECTED FERNANDA Administration Potassium Chloride/Sodium Chloride 1,000 mls @ 150 mls/hr 09/13/18 11:30 09/26 11:44 Normal Saline With 20 Meq Kcl IV 150 mls/hr ASDIRECTED FERNANDA Administration Discontinued Medications Generic Name Dose Route Start Last Admin Trade Name Freq PRN Reason Stop Dose Admin Hydromorphone HCl 1 mg 09/13/18 08:49 09/13/18 09:05 Dilaudid IVPUSH 09/13/18 08:50 1 mg ONETIME ONE Administration Hydromorphone HCl 1 mg 09/13/18 10:03 09/13/18 10:12 Dilaudid IVPUSH 09/13/18 10:04 1 mg ONETIME ONE Administration Hydromorphone HCl 0.5 mg 09/13/18 13:06 Dilaudid IVPUSH 09/13/18 13:07 ONETIME ONE Sodium Chloride 75 mls @ 0 mls/hr 09/13/18 09:30 09/13/18 09:47 Normal Saline IV 09/13/18 10:00 3 mls/hr ASDIRECTED FERNANDA Administration KVO Iopamidol 117 ml 09/13/18 09:30 09/13/18 09:47 Isovue-300 (61%) IV 09/13/18 10:00 150 ml . DIRECTED FERNANDA Administration Sodium Chloride 10 ml 09/13/18 09:29 09/13/18 09:50 Saline Flush FLUSH 09/13/18 09:30 10 ml ONETIME ONE Administration - Radiology Interpretation Free Text/Narrative:: CT abd/pelvis with IV contrast- CT Results Date: 09/13/18 Departure - Departure Time of Disposition: 13:15 Disposition: Admitted As Inpatient 68 Condition: Fair Clinical Impression: Acute cholecystitis - Discharge Information *PRESCRIPTION DRUG MONITORING PROGRAM REVIEWED*: No *COPY OF PRESCRIPTION DRUG MONITORING REPORT IN PATIENT JOSUE: No Referrals: Alyssia Gill PA [Primary Care Provider] - Forms: ED Department Discharge - My Orders Last 24 Hours: My Active Orders 09/13/18 09:00 Lactated Ringers [Ringers, Lactated] 1,000 ml IV ASDIRECTED 09/13/18 11:30 NS + KCl 20mEq/L [Normal Saline with 20 mEq KCl] 1,000 ml IV ASDIRECTED - Assessment/Plan Last 24 Hours: My Active Orders 09/13/18 09:00 Lactated Ringers [Ringers, Lactated] 1,000 ml IV ASDIRECTED 09/13/18 11:30 NS + KCl 20mEq/L [Normal Saline with 20 mEq KCl] 1,000 ml IV ASDIRECTED
[2018-09-13] MEDS ORDERED: Lactated Ringers 1,000 ML IV SCH (09:00)
[2018-09-13] MEDS ORDERED: Sodium Chloride 0.9% 75 ML IV SCH (09:30)
[2018-09-13] MEDS ORDERED: Iopamidol 612 MG/ML 150 ML Bottle IV SCH (09:30)
[2018-09-13] MEDS: Sodium Chloride 0.9% 10 ML Syringe FLUSH ONE ×2 (09:41→09:50)
--- NOTE | 2018-09-13 10:31 | CRLCT ---
INDICATION : Right upper quadrant pain. Gastric bypass. TECHNIQUE : CT Scan of the abdomen pelvis. IV contrast 117 cc nonionic. COMPARISON : CT scan of the abdomen pelvis 09/05/2014 FINDINGS: Lung bases: Coronary artery calcifications. Mild scarring. Liver: Mildly distended gallbladder no calcifications. Trace fluid possible around the gallbladder with trace gallbladder wall thickening. Mild periportal edema pattern in the liver which is usually nonspecific. Pancreas: Unremarkable. Spleen and adrenal glands: Unremarkable. Kidneys: Unremarkable. Retroperitoneum: No retroperitoneal adenopathy. GI tract: Alysia-en-Y bypass. Antecolic Alysia limb. No signs for fluid collection or obvious free air. Moderate stool throughout the colon. Moderate to large amount of stool in the distal colon. There are normal caliber appendix which contains some minimal fecal material but no fluid. Miscellaneous abdomen: Some peritoneal fluid in the lower right and left peritoneal gutters. Pelvis: The bladder is unremarkable and the prostate is mildly enlarged. No adenopathy. Skeletal: Multilevel lumbar stabilization hardware placements posterior hardware at T11-L5. Interbody stabilization L4-L5. Large amount of lucency around the pedicle screw tracks in L5 , likely chronic, however correlation with symptoms and previous lumbar dedicated spine imaging is suggested. Lumbar stabilization is new since prior CT scan. IMPRESSION: 1. Mildly distended gallbladder possible mild surrounding fluid. Ultrasound could be performed to investigate for other acute gallbladder abnormality such as stones or gallbladder wall thickening. 2. Stable appearance of Alysia-en-Y gastric bypass. 3. Chronic moderate to large colonic stool burden. 4. New interval multi segment thoracolumbar spine stabilization. Please note that all CT scans at this facility use dose modulation, iterative reconstruction, and/or weight-based dosing when appropriate to reduce radiation dose to as low as reasonably achievable. Dictated by Naveen White MD @ Sep 13 2018 10:21AM Signed by Dr. Naveen White @ Sep 13 2018 10:30AM
[2018-09-13] MEDS ORDERED: NS + KCl 20mEq/L 1,000 ML IV SCH (11:30)
[2018-09-13] MEDS ORDERED: HYDROmorphone 0.5 MG/0.5 ML Syringe IVPUSH ONE (13:06)
[2018-09-13 13:36] VITALS: BP 146/72
--- NOTE | 2018-09-13 20:37 | CONS ---
DATE OF SERVICE: 09/13/2018 REFERRING PHYSICIAN: CONSULTING PHYSICIAN: Greg River MD REASON FOR CONSULTATION: Upper quadrant abdominal pain. HISTORY OF PRESENT ILLNESS: A pleasant 58-year-old male who has had a 24-hour onset of right upper quadrant abdominal pain associated with nausea, made worse by eating greasy foods. This is also pain that radiates into the right shoulder. The pain is 1 to 2/10 and is constant. Modified by history of gastric bypass surgery. PAST SURGICAL HISTORY: 1. Gastric bypass surgery. 2. Back surgery. 3. Knee surgery. SOCIAL HISTORY: He does not smoke. REVIEW OF SYSTEMS: GENERAL: The patient is appropriate for condition. HEENT: No symptoms. CARDIOVASCULAR: No history of myocardial infarction. RESPIRATORY: No shortness of breath. GASTROINTESTINAL: As above except no acholic stools. GENITOURINARY: No dysuria. NEUROLOGIC: No abnormal issues. The remainder of systems is reviewed and is negative. PHYSICAL EXAMINATION: VITAL SIGNS: Stable. GENERAL: The patient is resting. HEENT: Pupils are equal. NECK: Supple. LUNGS: Clear. CARDIOVASCULAR: Regular rhythm and rate. ABDOMEN: Pain with palpation of right upper quadrant. EXTREMITIES: Full range of motion. NEUROLOGICAL: Alert and oriented x3. PSYCHIATRIC: No gross depression. LABORATORY RESULTS: No evidence of elevated bilirubin. IMAGING: I did review CT scan, which also suggests cholelithiasis and cholecystitis. ASSESSMENT: Cholelithiasis and cholecystitis. PLAN: The patient will be taken to the operating room for laparoscopic cholecystectomy. We discussed risks, benefits, alternatives, and limitations including, but not limited to, infection, bleeding, injury to bowel, cystic duct leaks, and common bile duct injuries. We discussed the possibility of open surgery. The patient understands these risks and wished to proceed. Greg River MD /[id number]
== END 2018-09-13 14:19 | disposition critical access hospital (66) ==
LOC: JP.ED 08:16
DX: K81.0 Acute cholecystitis (principal); I25.10 Atherosclerotic heart disease of native coronary artery without angina pectoris; E78.00 Pure hypercholesterolemia, unspecified; I10 Essential (primary) hypertension; Z95.5 Presence of coronary angioplasty implant and graft; E11.9 Type 2 diabetes mellitus without complications; F41.9 Anxiety disorder, unspecified; Z87.891 Personal history of nicotine dependence; Z88.5 Allergy status to narcotic agent; Z79.899 Other long term (current) drug therapy; Z79.82 Long term (current) use of aspirin
CPT/HCPCS: 36415; 74177; 80053; 85027; 86140; 96361; 96374; 96376; 99285; J1170; J3480; J7030; J7120

== ENCOUNTER 2018-09-14 07:53 | Day surgery (SDC) | payer MEDICARE ==
[~2018-09-14 07:53] MED LIST: Bupivacaine 0.5% 50 ML MDV ONE; Lidocaine 1% with EPINEPHrine 1:100,000 50 ML MDV ONE
[2018-09-14] MEDS ORDERED: Zolpidem 5 MG Tab PO PRN (08:49)
[2018-09-14] MEDS ORDERED: Benzocaine/Cetylpyridinium/Menthol Lozenge MUCMEM PRN (08:49)
[2018-09-14] MEDS ORDERED: Acetaminophen/HYDROcodone 325-5 MG Tab PO PRN (08:49)
[2018-09-14] MEDS ORDERED: hydrOXYzine HCl 100 MG/2 ML SDV IM PRN (08:49)
[2018-09-14] MEDS ORDERED: Docusate Sodium 100 MG Cap PO PRN (08:49)
[2018-09-14] MEDS ORDERED: Dexamethasone 4 MG/ML SDV ONE (09:05)
[2018-09-14] MEDS ORDERED: Ondansetron 4 MG/2 ML SDV ONE (09:05)
[2018-09-14] MEDS ORDERED: Rocuronium 50 MG/5 ML Vial ONE (09:05)
[2018-09-14] MEDS ORDERED: Neostigmine Methylsulfate 1 MG/ML 5 ML Syringe ONE (09:05)
[2018-09-14] MEDS ORDERED: Propofol 200 MG/20 ML SDV ONE ×2 (09:05→11:04)
[2018-09-14] MEDS ORDERED: Glycopyrrolate 0.2 MG/ML 5 ML MDV ONE (09:05)
[2018-09-14] MEDS ORDERED: Succinylcholine 200 MG/10 ML MDV ONE (09:05)
[2018-09-14] MEDS ORDERED: fentaNYL 250 MCG/5 ML SDV ONE (09:10)
[2018-09-14] MEDS: ceFAZolin 2 GM in Premix Bag 1 BAG IV ONE ×2 (09:28→12:43)
[2018-09-14] MEDS ORDERED: Sodium Chloride 0.9% 1,000 ML IV SCH (09:30)
[2018-09-14] MEDS ORDERED: Scopolamine 1.5 MG Transdermal Patch ONE (09:48)
[2018-09-14] MEDS ORDERED: metroNIDAZOLE/Normal Saline 500 MG in Premix Bag 1 BAG IV ONE (10:30)
[2018-09-14] MEDS ORDERED: fentaNYL 100 MCG/2 ML SDV ONE (10:33)
--- NOTE | 2018-09-14 13:33 | PROC ---
DATE OF PROCEDURE: 09/14/2018 SURGEON: Greg River MD PROCEDURE: Transversus abdominis plane block. COMPLICATION: None. PIE CRIMPING MACHINE OPERATOR: None. PREOPERATIVE DIAGNOSIS: Pain requirement. POSTOPERATIVE DIAGNOSIS: Pain requirement. PROCEDURE IN DETAIL: The patient was placed in supine position. The right transversus plane was identified first. Under direct ultrasound guidance, a needle was introduced, and the entire contents of the TAP block were injected. At no time was the needle advanced blindly nor was it past the transversus layer. The left side was then performed in same manner, same fashion, same technique, in the same sequence, and using the same equipment, except for a different needle and syringe. The patient tolerated the procedure well. Greg River MD /[id number]
[2018-09-14 16:04] VITALS: BP 147/89
--- NOTE | 2018-09-17 08:19 | OR ---
DATE OF PROCEDURE: 09/14/2018 SURGEON: Greg River MD PROCEDURES: 1. Laparoscopic cholecystectomy (32333). 2. Peritoneal biopsy, right upper quadrant and left lower quadrant (40951). 3. Omental biopsy. 4. EGD. 5. Liver biopsy. PREOPERATIVE DIAGNOSIS: Right upper quadrant abdominal pain consistent with cholelithiasis and cholecystitis. POSTOPERATIVE DIAGNOSIS: Right upper quadrant abdominal pain consistent with cholelithiasis and cholecystitis. COMPLICATIONS: None. PAPERHANGER ASSISTANT: None. ANESTHESIA: General/local. RISKS: Risks, benefits, alternatives, and limitations including, but not limited to infection, bleeding, requirement for open surgery, common bile duct injury, cystic duct leaks, biloma and seroma were also explained to the patient among other risks again. PROCEDURE IN DETAIL: The patient was placed in supine position. A supraumbilical Veress needle was used to enter the abdomen, without abnormality. A drop test was performed after the abdomen was insufflated. The Optiview trocar was entered under direct visualization. No evidence of enterotomy or injury was noted. It was immediately noted that the patient had fluid collection, with a bile tinge to it, in the right upper quadrant and left lower quadrant and somewhat diffuse throughout the abdomen. This fluid would be described as bile- tinged, but not pure bile. No evidence of foreign material or food material, and appeared to be chronic in nature. This was cultured and aspirated, approximately 200 to 300 mL of fluid was noted. Also, of note, the omentum was wrapped around the gallbladder, and there was an area on the lateral aspect, which was suggestive of perforation of the patient's gallbladder. Also, the omentum had some, most likely, inflammatory-type process, however, a piece of this was removed using Harmonic scalpel and sent to pathology. In addition, the patient has a history of alcoholic cirrhosis, and there was some sclerosis of the liver. Therefore, a Sarthak-Cut needle liver biopsy was performed by placing the Sarthak-Cut through the superior port, which was entered under direct visualization without difficulty. Sarthak-Cut was performed. The liver was elevated during this process to ensure no [id number] injury of the liver was noted. Electrocautery was used to control the bleeding from the biopsy. Two additional 5 mm ports were placed in the left abdomen and, during this process, an additional 5 mm port was placed in the left abdomen to facilitate running of the small bowel. Because the fluid was noted, the etiology of this was investigated. The colon was inspected without abnormality. The patient had somewhat redundant sigmoid colon. The small bowel was identified at the ileocecal valve and ran in a retrograde fashion. The Alysia-en-Y anastomosis appeared intact. There was no evidence of internal hernia. There was no evidence of ischemia or abnormal-looking bowel. The anastomosis sites were well healed. As the bowel was run in its entirety, gentle care was taken to ensure no enterotomy, rip, or tear, and none were noted. The Alysia-en-Y limb was followed up to the pouch. There were some adhesions from the liver to the pouch, which would be considered very normal in this situation, and these were not dissected. The remnant stomach was also identified and evaluated. No evidence of injury was noted within it. The gallbladder was then retracted cephalad. The infundibulum was retracted inferolaterally. A blunt dissection was performed and a "clear view" of the gallbladder was obtained with single pulsatile structure in the gallbladder and a single non-pulsatile structure on entering the gallbladder. These were clipped x3 and subsequently transected. One was pulsatile and bleeding, and blood was noted; one was not. The remaining one-third of the gallbladder was removed off the gallbladder bed without difficulty. This was delivered with gentle enlargement of the superior port. Of note, this port will be closed at the end of the procedure using heavy 0 Vicryl suture. The abdomen was thoroughly irrigated again. The bile fluid was cultured. The liver bed was inspected for abnormal bleeding, pressure was dropped, and none was noted. The Sarthak-Cut biopsy site was also inspected without abnormalities. The air was removed. The wound was closed with 3-0 Vicryl and 4-0 Vicryl in interrupted running fashion. Dermabond was applied. The patient tolerated the procedure well. /[id number] ADDENDUM: In addition, an EGD was also performed. The patient did have some bile-stained fluid, and the concern is for an occult marginal ulcer. The EGD scope was introduced and advanced atraumatically into the esophagus. No gross abnormalities were noted. The pouch was appropriately sized. There was no evidence of ulceration. The Alysia-en-Y limb and the blind limb were also investigated, without abnormality. There was no evidence of gastritis, ulceration, or any inflammatory disease. There was no evidence of narrowing or stricturing. There was also no evidence of recent bleeding or inflammatory process. The scope was then removed through the esophagus without difficulty. The patient tolerated this aspect of the procedure well. Greg River MD /[id number]
== END 2018-09-14 16:45 | disposition home or self-care (01) ==
LOC: JP.SDS 07:53 → JP.MS 12:00 → JP.SDS 16:45
PROVIDERS: ATTEND Surgery
DX: K80.10 Calculus of gallbladder with chronic cholecystitis without obstruction (principal); K66.0 Peritoneal adhesions (postprocedural) (postinfection); K65.4 Sclerosing mesenteritis; K65.8 Other peritonitis; I25.10 Atherosclerotic heart disease of native coronary artery without angina pectoris; I10 Essential (primary) hypertension; E78.00 Pure hypercholesterolemia, unspecified; E11.9 Type 2 diabetes mellitus without complications; E53.8 Deficiency of other specified B group vitamins; G47.30 Sleep apnea, unspecified; Z87.891 Personal history of nicotine dependence; Z88.5 Allergy status to narcotic agent; Z79.82 Long term (current) use of aspirin; Z79.899 Other long term (current) drug therapy; Z99.89 Dependence on other enabling machines and devices; Z95.5 Presence of coronary angioplasty implant and graft
CPT/HCPCS: 43235; 47379; 47562; 87070; 87075; 87205; A9270; J0171; J0330; J0690; J1100; J2405; J2704; J2710; J2795; J3010; J3410; J3490; J7030; J7050

== ENCOUNTER 2018-10-06 08:32 | Day surgery (SDC) | payer MEDICARE ==
[~2018-10-06 08:32] MED LIST changes: -Bupivacaine 0.5% 50 ML MDV ONE; -Lidocaine 1% with EPINEPHrine 1:100,000 50 ML MDV ONE; +ceFAZolin 2 GM in Premix Bag 1 BAG IV ONE
[2018-10-06] MEDS ORDERED: Sodium Chloride 0.9% 10 ML Syringe FLUSH PRN (08:45)
[2018-10-06] MEDS ORDERED: Neostigmine Methylsulfate 1 MG/ML 5 ML Syringe ONE (09:21)
[2018-10-06] MEDS ORDERED: Dexamethasone 4 MG/ML SDV ONE (09:21)
[2018-10-06] MEDS ORDERED: Rocuronium 50 MG/5 ML Vial ONE (09:21)
[2018-10-06] MEDS ORDERED: Succinylcholine 200 MG/10 ML MDV ONE (09:21)
[2018-10-06] MEDS ORDERED: Glycopyrrolate 0.2 MG/ML 5 ML MDV ONE (09:21)
[2018-10-06] MEDS ORDERED: Ondansetron 4 MG/2 ML SDV ONE (09:21)
[2018-10-06] MEDS ORDERED: Propofol 200 MG/20 ML SDV ONE (09:21)
[2018-10-06] MEDS ORDERED: Lactated Ringers 1,000 ML ONE (10:37)
[2018-10-06] MEDS ORDERED: Acetaminophen/HYDROcodone 325-5 MG Tab PO PRN (13:07)
[2018-10-06] MEDS ORDERED: fentaNYL 100 MCG/2 ML SDV IV PRN (13:08)
[2018-10-06 14:49] VITALS: BP 116/58
--- NOTE | 2018-10-08 09:25 | OR ---
DATE OF PROCEDURE: 10/06/2018 SURGEON: Greg River MD PROCEDURE: Drainage of fluid collection, right abdomen, with peritonitis (42457). COMPLICATIONS: None. ROPER OPERATOR: None. INDICATIONS: A pleasant 58-year-old male, who had a fluid collection in his right abdomen. This was noted on CT scan and was required for definitive drainage. PROCEDURE IN DETAIL: The patient was placed in supine position. The previous supraumbilical and two 5 mm ports were re-entered. This was performed via Veress needle. The abdomen was subsequently insufflated. No evidence of injury was noted after drop test, insufflation, and inspection. There was a fluid collection in the gallbladder fossa, mostly hematoma. No definitive evidence of infection, although there was some ascetic-type fluid in more proximity to the superior port. This was cultured, thoroughly suctioned and irrigated. A single 10 flat José Miguel-Snyder drain was placed. The wound was closed. After being irrigated, the 10 flat drain is placed in the right abdomen in the gallbladder fossa. The patient tolerated the procedure well. Greg River MD /[id number]
--- NOTE | 2018-10-08 09:25 | OR ---
DATE OF PROCEDURE: 10/06/2018 SURGEON: Greg River MD PROCEDURE: Transversus abdominis plane block bilaterally. COMPLICATION: None. BILINGUAL CUSTOMER SERVICE: None. RISKS: Risks, benefits, alternatives, and limitations including, but not limited to infection, bleeding, and perforation of abdominal structures were explained to the patient, who wished to proceed. PROCEDURE: The patient was placed in the supine position. The left and right transversus abdominis planes were injected bilaterally. The left was addressed first using 11 megahertz ultrasound probe. This was advanced under direct ultrasound guidance. At no point did the needle be guided blindly. The total amount of solution was injected on the left, and the same procedure performed in the same manner, same fashion, same technique, and in the same sequence on the right side without problems. The patient tolerated the procedure well. Greg River MD /[id number]
== END 2018-10-06 14:30 ==
LOC: JP.SDS 08:32 → JP.MS 10:47 → JP.SDS 14:30
PROVIDERS: ATTEND Surgery
DX: K65.9 Peritonitis, unspecified (principal); R18.8 Other ascites; B96.20 Unspecified Escherichia coli [E. coli] as the cause of diseases classified elsewhere; I10 Essential (primary) hypertension; I25.10 Atherosclerotic heart disease of native coronary artery without angina pectoris; G47.33 Obstructive sleep apnea (adult) (pediatric); G89.18 Other acute postprocedural pain; Z88.5 Allergy status to narcotic agent; Z95.5 Presence of coronary angioplasty implant and graft
CPT/HCPCS: 36415; 49020; 64488; 80053; 85025; 87070; 87075; 87077; 87186; 87205; J0171; J0330; J0690; J1100; J2405; J2704; J2710; J2795; J3010; J3490; J7050; J7120

== ENCOUNTER 2018-10-08 10:00 | Emergency (ER) | payer MEDICARE ==
--- NOTE | 2018-10-08 11:43 | EDM.PDOC ---
ED HPI GENERAL MEDICAL PROBLEM - General Chief Complaint: Abdominal Pain Stated Complaint: PAIN AFTER SURGERY Time Seen by Provider: 10/08/18 11:30 Source of Information: Reports: Patient History Limitations: Reports: No Limitations - History of Present Illness INITIAL COMMENTS - FREE TEXT/NARRATIVE: Patient states he had his gallbladder out a "couple weeks ago" and was in to see surgeon on Monday; had a CT scan done and found free fluid. A drain was placed to the abdomen and he states he is concerned because there is an abnormal amount of fluid out. He denies fever, but has no appetite. Denies complications with urination. Bowels are moving, loose. No chest pain or shortness of breath. Onset: Gradual Severity: Moderate Improves with: Reports: None Worsens with: Reports: None Associated Symptoms: Reports: Loss of Appetite Right Lower Abdomen Pain Score (Numeric/FACES): 8 - Related Data Allergies Allergy/AdvReac Type Severity Reaction Status Date / Time morphine sulfate AdvReac Change Verified 10/08/18 10:42 [From MS Contin] Mental Status Home Meds: Home Meds Harley Cit/D3/K/Mag Ox/Stron/Bor [Theracal D2000] 400 - 500 mg PO BID 01/25/13 [ History] Multivitamin with Minerals [Multiple Vitamin] 1 tab PO DAILY 01/25/13 [History] Vitamin B Complex [B Complex] 100 mg PO DAILY 01/25/13 [History] amLODIPine [Norvasc] 10 mg PO BEDTIME 03/02/14 [History] Aspirin [Adult Low Dose Aspirin EC] 325 mg PO DAILY 09/06/14 [History] Cholecalciferol (Vitamin D3) [Vitamin D3] 3,000 unit PO DAILY 09/06/14 [History] Magnesium 250 mg PO DAILY 05/27/15 [History] Omeprazole 40 mg PO BEDTIME 05/27/15 [History] Simvastatin [Zocor] 10 mg PO DAILY 05/27/15 [History] Carvedilol 50 mg PO DAILY 07/13/18 [History] FLUoxetine HCl [Prozac] 20 mg PO DAILY 07/13/18 [History] Ferrous Fumarate [Hemocyte] 324 mg PO DAILY 07/13/18 [History] oxyCODONE HCl/Acetaminophen [Endocet 10-325 mg Tablet] 1 each PO Q8HR PRN [History] traZODone HCl [Trazodone HCl] 100 mg PO BEDTIME 07/13/18 [History] Past Medical History - Past Health History Medical/Surgical History: Denies Medical/Surgical History HEENT History: Reports: Impaired Vision Cardiovascular History: Reports: CAD, High Cholesterol, Hypertension, Stents Respiratory History: Reports: Sleep Apnea Other Respiratory History: Stoped uses CPAP Musculoskeletal History: Reports: Back Pain, Chronic, Fracture Other Musculoskeletal History: Brown recluse spider bite in past Neurological History: Reports: Other (See Below) Other Neuro History: balance issue after back fracture. spinal fracture Psychiatric History: Reports: Anxiety Endocrine/Metabolic History: Reports: Diabetes, Type II Hematologic History: Reports: B12 Deficiency Other Dermatologic History: brown recluse bit on right mid-back, did have it surgerically repaired/debrieded. - Infectious Disease History Infectious Disease History: Reports: Chicken Pox - Past Surgical History Cardiovascular Surgical History: Reports: Coronary Artery Stent GI Surgical History: Reports: Bariatric Procedure, Cholecystectomy, Other (See Below) Other GI Surgeries/Procedures: Drain placed rl abdomen 3 days ago Other Neurological Surgeries/Procedures: kiphroplasty. Lumbar procedure with hardware and fusion x 3. Musculoskeletal Surgical History: Reports: Arthroscopic Knee, Other (See Below) Other Musculoskeletal Surgeries/Procedures:: achilles tendon surgery Social & Family History - Family History Oncologic: Reports: Pancreatic - Tobacco Use Smoking Status *Q: Never Smoker Second Hand Smoke Exposure: No - Caffeine Use Caffeine Use: Reports: Coffee, Soda Other Caffeine Use: couple cups of coffee and soda Caffeine Use Comment: 1 cup per day, 3 sodas a day - Alcohol Use Days Per Week of Alcohol Use: 1 Number of Drinks Per Day: 1 Total Drinks Per Week: 1 - Recreational Drug Use Recreational Drug Use: No ED ROS GENERAL - Review of Systems Review Of Systems: See Below Constitutional: Reports: Decreased Appetite Respiratory: Reports: No Symptoms Cardiovascular: Reports: No Symptoms Endocrine: Reports: Fatigue GI/Abdominal: Reports: Diarrhea, Decreased Appetite : Reports: No Symptoms Musculoskeletal: Reports: No Symptoms Skin: Reports: No Symptoms Neurological: Reports: No Symptoms Psychiatric: Reports: No Symptoms ED EXAM, GENERAL - Physical Exam Exam: See Below Exam Limited By: No Limitations General Appearance: Alert, WD/WN, No Apparent Distress Ears: Normal External Exam Throat/Mouth: Other (semi dry mucosa) Head: Atraumatic, Normocephalic Neck: Normal Inspection Respiratory/Chest: No Respiratory Distress, Lungs Clear, Normal Breath Sounds Cardiovascular: Normal Peripheral Pulses, Regular Rate, Rhythm GI/Abdominal: Normal Bowel Sounds, Tender, Other (drain in place, fluid's draining) Back Exam: Normal Inspection Extremities: Normal Inspection, Normal Range of Motion Neurological: Alert, Oriented, CN II-XII Intact, Normal Cognition, Normal Gait Psychiatric: Normal Affect, Normal Mood Skin Exam: Warm, Dry, Intact Course - Vital Signs Last Recorded V/S: Last Vital Signs Temp 96.4 F 10/08/18 10:53 Pulse 85 10/08/18 10:53 Resp 16 10/08/18 10:53 BP 113/70 10/08/18 10:53 Pulse Ox 100 10/08/18 10:53 - Orders/Labs/Meds Orders: Active Orders 24 hr Category Date Time Status Peripheral IV Care [RC] . DIRECTED Care 10/08/18 11:51 Active CULTURE BODY FLUID + SMEAR [RM] Stat Lab 10/08/18 14:05 Results Ertapenem [INVanz] 1 gm Med 10/08/18 13:00 Active Sodium Chloride 0.9% [Normal Saline] 100 ml IV Q24H Peripheral IV Insertion Adult [OM.PC] Stat Oth 10/08/18 11:51 Ordered Medication Orders Ertapenem 1 gm/ Sodium (Chloride) 100 mls @ 200 mls/hr IV Q24H [facility] Last Admin: 10/08/18 13:19 Dose: 200 mls/hr Labs: Laboratory Tests 10/08/18 10/08/18 Range/Units 12:04 12:04 WBC 24.0 H (4.5-11.0) K/uL RBC 2.94 L (4.30-5.90) M/uL Hgb 8.1 L (12.0-15.0) g/dL Hct 25.9 L (40.0-54.0) % MCV 88 (80-98) fL MCH 28 (27-31) pg MCHC 31 L (32-36) % Plt Count 580 H (150-400) K/uL Neut % (Auto) 93 H (36-66) % Lymph % (Auto) 3 L (24-44) % Menard % (Auto) 4 (2-6) % Eos % (Auto) 0 L (2-4) % Baso % (Auto) 0 (0-1) % Sodium 137 L (140-148) mmol/L Potassium 4.2 (3.6-5.2) mmol/L Chloride 100 (100-108) mmol/L Carbon Dioxide 26 (21-32) mmol/L Anion Gap 15.2 H (5.0-14.0) mmol/L BUN 25 H D (7-18) mg/dL Creatinine 0.8 (0.8-1.3) mg/dL Est Cr Clr Drug Dosing 106.46 mL/min Estimated GFR (MDRD) > 60 (>60) Glucose 121 H (74-106) mg/dL Calcium 8.2 L (8.5-10.1) mg/dL Total Bilirubin 0.4 (0.2-1.0) mg/dL AST 14 L (15-37) U/L ALT 5 L (12-78) U/L Alkaline Phosphatase 124 H (46-116) U/L Total Protein 5.9 L (6.4-8.2) g/dL Albumin 1.6 L (3.4-5.0) g/dL Globulin 4.3 H (2.3-3.5) g/dL Albumin/Globulin Ratio 0.4 L (1.2-2.2) Meds: Medications Generic Name Dose Route Start Last Admin Trade Name Fariad PRN Reason Stop Dose Admin Ertapenem 1 gm/ Sodium 100 mls @ 200 mls/hr 10/08/18 13:00 10/08/18 13:19 Chloride IV 200 mls/hr Q24H FERNANDA Administration Discontinued Medications Generic Name Dose Route Start Last Admin Trade Name Farida PRN Reason Stop Dose Admin Sodium Chloride 500 mls @ 500 mls/hr 10/08/18 11:51 Normal Saline IV 10/08/18 12:50 .BOLUS ONE Sodium Chloride 1,000 mls @ 500 mls/hr 10/08/18 12:28 10/08/18 12:30 Normal Saline IV 10/08/18 13:50 500 mls/hr .BOLUS ONE Administration Multivitamins/Minerals 10 ml/ 1,017.2 mls @ 500 mls/hr 10/08/18 13:30 14:03 Thiamine HCl 100 mg/ Folic IV 10/08/18 15:32 500 mls/hr Acid 1 mg/ Magnesium Sulfate 3 ONETIME ONE Administration gm/ Sodium Chloride Sodium Chloride 10 ml 10/08/18 11:51 Saline Flush FLUSH ASDIRECTED PRN Keep Vein Open - Re-Assessments/Exams Free Text/Narrative Re-Assessment/Exam: 10/08/18 14:58 Resting comfortably; IV antibiotics infused; currently receiving banana bag; has no complaints. States he is feeling fine, no pain currently. Departure - Departure Time of Disposition: 15:41 Disposition: Home, Self-Care 01 Condition: Fair Clinical Impression: Abdominal abscess - Discharge Information *PRESCRIPTION DRUG MONITORING PROGRAM REVIEWED*: Not Applicable *COPY OF PRESCRIPTION DRUG MONITORING REPORT IN PATIENT JOSUE: Not Applicable Instructions: Abdominal Pain, Adult, [id number] Referrals: Alyssia Gill PA [Primary Care Provider] - Forms: ED Department Discharge Care Plan Goals: picc line placement 10/09 10 am at hospital outpatient dept clinic appt at 2pm with dr river ED Communication - Discussed Case With (1) Discussed Case With (1): Other (SurgeonJoe; spoke with via phone. Orders given.) - Problem List & Annotations (1) Abdominal abscess SNOMED Code(s): 92460009 Code(s): SSZ3078 - Status: Acute Priority: Medium Current Visit: Yes - Problem List Review Problem List Initiated/Reviewed/Updated: Yes - My Orders Last 24 Hours: My Active Orders 10/08/18 11:51 Peripheral IV Care [RC] . DIRECTED Peripheral IV Insertion Adult [OM.PC] Stat 10/08/18 13:00 Ertapenem [INVanz] 1 gm Sodium Chloride 0.9% [Normal Saline] 100 ml IV Q24H 10/08/18 14:05 CULTURE BODY FLUID + SMEAR [RM] Stat - Assessment/Plan Last 24 Hours: My Active Orders 10/08/18 11:51 Peripheral IV Care [RC] . DIRECTED Peripheral IV Insertion Adult [OM.PC] Stat 10/08/18 13:00 Ertapenem [INVanz] 1 gm Sodium Chloride 0.9% [Normal Saline] 100 ml IV Q24H 10/08/18 14:05 CULTURE BODY FLUID + SMEAR [RM] Stat Assessment:: Surgeon ordered Ivanz 1 G q 24 hours for 7 days; Ordered PICC line, which will be placed tomorrow, 10/09/18. He received banana bag while in ER and 1st dose of Invanz. Will Follow up with Joe tomorrow. Plan: Stay hydrated; sips of fluids every 15 minutes while awake should keep you hydrated. If you feel you are getting worse, please, by whatever means, return to the ER. Be sure to follow up with Dr. River tomorrow. You will have a PICC line placed tomorrow as well so you can get your IV antibiotics. Please make appointment to follow up with your primary doctor within the next 7 days. Call with questions.
[2018-10-08] MEDS ORDERED: Sodium Chloride 0.9% 500 ML IV ONE (11:51)
[2018-10-08] MEDS ORDERED: Sodium Chloride 0.9% 10 ML Syringe FLUSH PRN (11:51)
[2018-10-08] MEDS ORDERED: Sodium Chloride 0.9% 1,000 ML IV ONE (12:28)
[2018-10-08] MEDS ORDERED: MVI, Adult with Vitamin K 10 ML, Thiamine 100 MG, Folic Acid 1 MG, Magnesium Sulfate 3 ... IV SCH ×5 (13:00)
[2018-10-08] MEDS ORDERED: Ertapenem 1 GM in Sodium Chloride 0.9% 100 ML IV SCH (13:00)
[2018-10-08] MEDS ORDERED: MVI, Adult with Vitamin K 10 ML, Thiamine 100 MG, Folic Acid 1 MG, Magnesium Sulfate 3 ... IV ONE ×5 (13:30)
[2018-10-08 15:52] VITALS: BP 151/74
== END 2018-10-08 16:15 | disposition home or self-care (01) ==
LOC: JP.ED 10:00
DX: L02.211 Cutaneous abscess of abdominal wall (principal); I10 Essential (primary) hypertension; E78.00 Pure hypercholesterolemia, unspecified; I25.10 Atherosclerotic heart disease of native coronary artery without angina pectoris; E11.9 Type 2 diabetes mellitus without complications; Z79.82 Long term (current) use of aspirin; Z79.899 Other long term (current) drug therapy; Z88.5 Allergy status to narcotic agent
CPT/HCPCS: 36415; 80053; 85025; 87070; 87077; 87186; 87205; 96361; 96365; 96366; 96367; 99284; J1335; J3411; J3475; J7030; J7040; J3490

== ENCOUNTER 2018-10-09 15:20 | Inpatient (IN) | payer MEDICARE ==
--- NOTE | 2018-10-09 14:35 | CRLCT ---
INDICATION: Abscess follow-up TECHNIQUE: CT abdomen and pelvis acquired with IV contrast. Benign 10 cc Isovue-300 COMPARISON: 10/05/2018 FINDINGS: Lower chest: Bibasilar atelectasis. Hiatal hernia. Liver: Unremarkable. Spleen: Unremarkable. Pancreas: Unremarkable. Gallbladder and bile ducts: Cholecystectomy. Kidneys: Unremarkable. Adrenal glands: Unremarkable. GI tract: Persistent thickening of the ascending colon. Vascular structures: Unremarkable. Lymph nodes: Unremarkable. Miscellaneous: 5.0 centimeter x 3.5 centimeter right upper quadrant abscess extending into Morison`s pouch with a percutaneous drain. This has significantly decreased compared to 10/05/2018 and previously measured approximately 12.0 centimeters x 6.0 centimeters. Stable 4.0 centimeter fluid collection in the posterior medial right lobe of the liver. 10.0 centimeter x 7.0 centimeter thin-walled fluid collection in the pelvis and extending into the right lower quadrant consistent with abscess. This was not present on prior study. Small amount of free air noted in the right upper quadrant. Pelvic Organs: Diffuse bladder wall thickening. Prostatomegaly. Bones: Posterior spinal fixation hardware lumbar spine. IMPRESSION: 5.0 centimeter x 3.5 centimeter right upper quadrant abscess extending into Morison`s pouch with a percutaneous drain in place. This has significantly decreased compared to 10/05/2018 and previously measured approximately 12.0 centimeters x 6.0 centimeters. Stable 4.0 centimeter collection in the posterior medial aspect of the right lobe of the liver. 10.0 centimeter x 7.0 centimeter thin walled collection in the pelvis and extending into the right lower quadrant consistent with abscess. This was not present on prior study. Small amount of free air in the right upper quadrant of unknown etiology and may be related to the percutaneous drain. Diffuse bladder wall thickening. Prostatomegaly. Persistent thickening of the ascending colon. Hiatal hernia. Please note that all CT scans at this facility use dose modulation, iterative reconstruction, and/or weight-based dosing when appropriate to reduce radiation dose to as low as reasonably achievable. Dictated by Luisito Wells MD @ Oct 09 2018 2:21PM Signed by Dr. Luisito Wells @ Oct 09 2018 2:34PM
[~2018-10-09 15:20] MED LIST changes: +Ertapenem 1 GM in Sodium Chloride 0.9% 100 ML IV ONE; +Iopamidol 500 ML BOTTLE IV ONE; -ceFAZolin 2 GM in Premix Bag 1 BAG IV ONE; +oxyCODONE 5 MG Tab PO ONE
[2018-10-09] MEDS ORDERED: Meropenem 500 MG SDV ONE (15:24)
[2018-10-09] MEDS ORDERED: Midazolam 1 MG/ML 2 ML SDV ONE (15:43)
[2018-10-09] MEDS ORDERED: fentaNYL 250 MCG/5 ML SDV ONE (15:43)
[2018-10-09] MEDS ORDERED: Propofol 200 MG/20 ML SDV ONE (15:43)
[2018-10-09] MEDS ORDERED: Glycopyrrolate 0.2 MG/ML 5 ML MDV ONE (15:43)
[2018-10-09] MEDS ORDERED: Ondansetron 4 MG/2 ML SDV ONE (15:43)
[2018-10-09] MEDS ORDERED: Neostigmine Methylsulfate 1 MG/ML 5 ML Syringe ONE (15:43)
[2018-10-09] MEDS ORDERED: Rocuronium 50 MG/5 ML Vial ONE (15:43)
[2018-10-09] MEDS ORDERED: Dexamethasone 4 MG/ML SDV ONE (15:43)
[2018-10-09] MEDS ORDERED: MVI, Adult with Vitamin K 10 ML, Chromium/Copper/Mang/Selen/Zn 1 ML, Thiamine 200 MG in... IV ONE ×4 (16:00)
[2018-10-09] MEDS ORDERED: Succinylcholine 200 MG/10 ML MDV ONE (16:20)
[2018-10-09] MEDS ORDERED: Promethazine 25 MG/ML SDV IM PRN (17:22)
[2018-10-09] MEDS ORDERED: Zolpidem 5 MG Tab PO PRN (17:22)
[2018-10-09] MEDS ORDERED: fentaNYL 100 MCG/2 ML SDV IVPUSH PRN ×2 (17:22)
[2018-10-09] MEDS ORDERED: Benzocaine/Cetylpyridinium/Menthol Lozenge MUCMEM PRN (17:22)
[2018-10-09] MEDS ORDERED: diphenhydrAMINE 50 MG/ML SDV IVPUSH PRN (17:22)
[2018-10-09] MEDS ORDERED: hydrOXYzine HCl 100 MG/2 ML SDV IM PRN (17:22)
[2018-10-09] MEDS ORDERED: Scopolamine 1.5 MG Transdermal Patch ONE (17:25)
[2018-10-09] MEDS: Sodium Chloride 0.9% 1,000 ML IV SCH (19:15)
--- NOTE | 2018-10-10 08:27 | OR ---
DATE OF PROCEDURE: 10/09/2018 SURGEON: Greg River MD PROCEDURE PERFORMED: 1. Diagnostic laparoscopy with drainage of abscess, lower pelvis. 2. Drainage of fluid collection with peritonitis (37256). 3. Exploratory laparotomy (47852). COMPLICATION: None. RETRIMMER: None. FINDINGS: 1. Abscess in the pelvis, as previously described on CT scan, approximately 10 cm in size. 2. Plaque-like infection noted on areas of bowel and in liver. 3. No evidence of enterotomy injury or abnormal torsion with respect to bowel or Aylsia-en- Y. COMPLICATIONS: None. RETRIMMER: None. ANESTHESIA: General. RISKS: Risks, benefits, alternatives, and limitations including, but not limited to, infection, bleeding, requirement of open surgery, small bowel resection, reoperation, abscess, sepsis, and other risks not listed here were explained to the patient, who wished to proceed. INDICATIONS: A pleasant 58-year-old male, who is having ongoing health problems, who underwent a laparoscopic cholecystectomy and developed an abscess. He presents today with fevers and chills. CT scan shows an additional abscess. Of note, the patient previously underwent a hematoma evacuation but now has developed probable abscess. PROCEDURE IN DETAIL: The patient was placed in supine position. The supraumbilical curvilinear incision was reopened. A Veress needle was used to enter the abdomen without abnormality. A drop test was performed without abnormality. An Optiview trocar was inserted. There was noted to be a large amount of abscess type pus material in the pelvis, able to be partially removed with suction irrigation. However, due to the thick nature and the concern for other possible pathological diagnosis, this would be then converted to exploratory laparotomy. The exploratory laparotomy was performed by using midline incision with a 15 blade, and it was carried down with electrocautery. Kochers were used to elevate the abdomen, and the pneumoperitoneum was entered sharply. No evidence of enterotomy or injury noted during this aspect. A yellow pus type fluid was cultured, and the pelvis was thoroughly suctioned and irrigated. The bowel was ran distal to proximal and proximal to distal. No evidence of enterotomy, injury, or abnormality was noted. The appendix was inspected without abnormality. The abdomen was thoroughly irrigated with greater than 5 L of irrigation. Prior to irrigation, cultures had been taken of pelvic abscess. Fluid collections and loculations were noted around the liver in mid abdomen. These were all broken up and thoroughly irrigated. Meropenem irrigation was also used for this process. Once this was completed, fascia was closed with #1 Vicryl in running fashion, skin was closed after thorough irrigation, and zac were applied. The patient tolerated the procedure well. Greg River MD /[id number]
--- NOTE | 2018-10-10 08:30 | OR ---
DATE OF PROCEDURE: 10/09/2018 SURGEON: Greg River MD PROCEDURE: Transversus abdominis plane block. COMPLICATIONS: None. WRAPPER STITCHER: None. RISKS: Risks, benefits, alternatives, and limitations including, but not limited to infection, bleeding, and injury to abdominal structures were explained to the patient. DESCRIPTION OF PROCEDURE: The left transversus abdominis plane was identified first. This was entered under direct ultrasound guidance. The entire contents were injected into the transversus plane. The right side was then performed in the same manner, same fashion, same technique, in the same sequence, and using the same equipment on the opposite side. This was also under direct visualization. The patient tolerated the procedure well. Greg River MD /[id number]
[2018-10-10] MEDS: Enoxaparin 40 MG/0.4 ML Syringe SUBCUT SCH (09:24)
[2018-10-10] MEDS: Ertapenem 1 GM in Sodium Chloride 0.9% 100 ML IV SCH (09:24)
[2018-10-10] MEDS: Acetaminophen/oxyCODONE 325-10 MG Tab PO PRN ×4 (09:46→22:09)
--- NOTE | 2018-10-10 10:02 | PN ---
DATE OF SERVICE: 10/10/2018 SUBJECTIVE: The patient is doing very well. Pain is well controlled. No nausea, vomiting, shortness of breath, or chest pain. He is tolerating a diet. Subjectively, the patient states he feels significantly better. OBJECTIVE: VITAL SIGNS: Stable. CARDIOVASCULAR: Regular rhythm and rate. RESPIRATORY: Lungs are clear to auscultation bilaterally. ABDOMEN: Minimal pain with palpation. Drain output is still consistent with the abscess- type material. ASSESSMENT: Status post abscess drainage. PLAN: We will remove his Woods catheter today. The patient and I had a long discussion. It is my recommendation that he stays for a few days to continue on with his antibiotics and observation. The patient is politely adamant about leaving as he states he has dogs at home and no one can take care of them but him. Again, we did have a polite discussion that I do recommend he stays; however, he really feels he needs to leave today. Unsure if there is other reasons for his desire to leave. As we did discuss, maybe someone can take care of his pets; however, he states only he can do this. We did discuss the risks, benefits, alternatives, and limitations of this. We also specifically discussed sepsis, abdominal issues requiring reoperation, pain management issues. Nonetheless, the patient is very persistent on discharge. If he does go home today, we discussed diet, activity, exercise, signs and symptoms of complications, the role of the emergency room and other things not listed here. With respect to his chronic anemia, his hemoglobin is now 10. We did discuss his overall health. The patient states he has been in significantly poor health preoperatively. He is quite frustrated with the care he is getting with [facility], and I did encourage him to express his concerns with them, especially the anemia which is chronic and has its own health issues. We will see if the patient will stay further today. Aside from that, continue with the diet, Woods out, and activities encouraged. Greg River MD /[id number]
[2018-10-10] MEDS: Sodium Chloride 0.9% 1,000 ML IV SCH (14:10)
[2018-10-11] MEDS: Sodium Chloride 0.9% 1,000 ML IV SCH ×2 (02:49→15:42)
[2018-10-11] MEDS: Acetaminophen/oxyCODONE 325-10 MG Tab PO PRN ×4 (05:33→19:50)
[2018-10-11] MEDS: Enoxaparin 40 MG/0.4 ML Syringe SUBCUT SCH (09:22)
[2018-10-11] MEDS: Ertapenem 1 GM in Sodium Chloride 0.9% 100 ML IV SCH (09:28)
--- NOTE | 2018-10-11 09:48 | PN ---
DATE OF SERVICE: 10/11/2018 SUBJECTIVE: The patient is stable today. He feels slightly better. He is having bowel movements. No nausea, vomiting, shortness of breath. His pain is described as 1/10 to 2/10. OBJECTIVE: VITAL SIGNS: Vital signs are stable. He is afebrile. CARDIOVASCULAR: Regular rhythm and rate. RESPIRATORY: Lungs are clear to auscultation bilaterally. ABDOMEN: Incision is healing well with dressing intact. ASSESSMENT: Status post exploratory laparotomy: 1. Infectious disease. The patient is sensitive to most antibiotics. He has been on Invanz and is slowly advancing. We will change this to Zosyn today to see if we can more effectively address the E. coli bacteria. 2. Prophylaxis. The patient is not on Lovenox. 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 He will continue SCDs and aggressive ambulation. 3. Diet. He is on a regular diet. He is having bowel movements. The patient does have some issues with this secondary to Alysia-en-Y preoperatively. 4. General disposition. Overall, the patient has significant health problems preoperatively with back pain, narcotic issues, and others not listed here, but overall his general medical condition is stable. 5. Biliary system. The patient's bilirubin has always remained normal. His alkaline phosphatase is normal. There was no evidence of bile leak during exploration. The patient is a previous Alysia-en-Y, so he would not be amenable for ERCP if indicated, but there are no indications of that at this point. An MRCP will be considered if we see any issues with biliary tree; however, all signs point to a hematoma, which became infected and he is now working on resolution. Greg River MD /[id number]
[2018-10-11] MEDS: Piperacillin/Tazobactam/Dext 4.5 GM in Premix Bag 1 BAG IV SCH ×3 (09:56→22:10)
[2018-10-12] MEDS: Acetaminophen/oxyCODONE 325-10 MG Tab PO PRN ×5 (01:32→20:07)
[2018-10-12] MEDS: Piperacillin/Tazobactam/Dext 4.5 GM in Premix Bag 1 BAG IV SCH ×2 (03:23→10:57)
[2018-10-12] MEDS: Enoxaparin 40 MG/0.4 ML Syringe SUBCUT SCH (09:36)
--- NOTE | 2018-10-12 11:19 | PN ---
DATE OF SERVICE: 10/12/2018 SUBJECTIVE: The patient continues to improve both subjectively and objectively. He is having bowel movements. His pain is well controlled. Even his back pain has improved. No nausea, vomiting, shortness of breath, or chest pain. OBJECTIVE: VITAL SIGNS: Stable. He is afebrile. EXTREMITIES: Incision healing well. ASSESSMENT: Status post abdominal fluid drainage. PLAN: The patient is doing quite well. His white blood cell count has decreased significantly overnight with change of the antibiotics. His ADRIANE output had decreased. He feels subjectively pain has improved and objective scales also show improvement. We will hold on the MRCP at this time. Bilirubin remains normal. Essentially overall improvement. Greg River MD /[id number]
[2018-10-12] MEDS: Multivitamins with Iron/Calcium/Folic Acid/Minerals Tab PO SCH (14:19)
[2018-10-12] MEDS: FLUoxetine 20 MG Cap PO SCH (14:19)
[2018-10-12] MEDS: Carvedilol 25 MG Tab PO SCH (14:21)
[2018-10-12] MEDS: Piperacillin/Tazobactam 4.5 GM in Sodium Chloride 0.9% 100 ML IV SCH ×2 (15:17→22:18)
[2018-10-12] MEDS ORDERED: amLODIPine 10 MG Tab PO SCH (21:00)
[2018-10-12] MEDS ORDERED: Pantoprazole 40 MG Tab.CR PO SCH (21:00)
[2018-10-12] MEDS ORDERED: traZODone 50 MG Tab PO SCH (21:00)
[2018-10-13] MEDS: Acetaminophen/oxyCODONE 325-10 MG Tab PO PRN ×3 (00:11→08:33)
[2018-10-13] MEDS: Piperacillin/Tazobactam 4.5 GM in Sodium Chloride 0.9% 100 ML IV SCH ×2 (03:36→10:43)
[2018-10-13] MEDS: FLUoxetine 20 MG Cap PO SCH (08:18)
[2018-10-13] MEDS: Carvedilol 25 MG Tab PO SCH (08:18)
[2018-10-13] MEDS: Multivitamins with Iron/Calcium/Folic Acid/Minerals Tab PO SCH (08:18)
[2018-10-13] MEDS: Enoxaparin 40 MG/0.4 ML Syringe SUBCUT SCH (08:19)
[2018-10-13] MEDS ORDERED: Vitamin B Complex Tab PO SCH (09:00)
[2018-10-13] MEDS ORDERED: Simvastatin 20 MG Tab PO SCH (09:00)
[2018-10-13] MEDS ORDERED: Aspirin 325 MG Tab.EC PO SCH (09:00)
[2018-10-13] MEDS ORDERED: Magnesium Oxide 400 MG Tab PO SCH (09:00)
[2018-10-13 10:48] VITALS: BP 103/63; PULSE 59
[2018-10-13] MEDS ORDERED: cefTRIAXone 2 GM in Sodium Chloride 0.9% 50 ML IV ONE (13:30)
--- NOTE | 2018-10-13 13:32 | PN ---
DATE OF SERVICE: 10/13/2018 SUBJECTIVE: The patient continues to show some improvement. The pain is well controlled. No nausea, vomiting, shortness of breath, or chest pain. His white blood cell count has slowly decreased. His drain output is also significantly decreasing. The patient has requested to be discharged today. OBJECTIVE: VITAL SIGNS: Stable. CARDIOVASCULAR: Regular rhythm and rate. RESPIRATORY: Lungs clear to auscultation bilaterally. ABDOMEN: Incision healing well. ASSESSMENT: Status post abscess drainage. PLAN: The patient was discharged today. Please see discharge summary for further details. Greg River MD /[id number]
--- NOTE | 2018-10-15 10:32 | DISCH ---
DISCHARGE DIAGNOSIS: Abdominal infection. SUMMARY OF HOSPITAL COURSE: This is a pleasant 58-year-old male, who had some significant health problems preoperatively. On previous admission, he underwent a laparoscopic cholecystectomy and developed a hematoma. The patient did develop an infection of the hematoma and was to undergo diagnostic laparoscopy and washout. The patient underwent exploratory laparotomy to remove the large amount of infection. During this hospitalization, his bilirubin, alkaline phosphatase, and other liver function tests remained normal. His white blood cell count initially did not respond to Invanz but once antibiotics were changed to Zosyn, he responded quite well. On discharge today, pain is well controlled. He has no nausea, shortness of breath, or chest pain. He is having bowel movements. He remains afebrile. White blood cell count is not significant. Followup next week. In addition, the patient is to continue IV antibiotics as an outpatient for an additional 7 days. We did discuss with him that he has an ongoing infection, and we have admitted him to stay several days beyond his preference. However, he is doing quite well, and he was instructed that if he does not do well, he was instructed to present to the emergency room immediately. We discussed signs, symptoms, and complications, we also discussed risks, benefits, and alternatives and limitations of discharge today. The patient understands, and he will be discharged.
== END 2018-10-13 13:55 | disposition home or self-care (01) | DRG 858 ==
LOC: JP.SDS 15:20 → JP.MS 17:23 → OBSVTOIN 10-11 14:44
PROVIDERS: ADMIT Surgery; ATTEND Surgery
PROC: 0W9J4ZZ Drainage of Pelvic Cavity, Percutaneous Endoscopic Approach (ICD-10-PCS; principal; 2018-10-09)
PROC: 30233N1 Transfusion of Nonautologous Red Blood Cells into Peripheral Vein, Percutaneous Approach (ICD-10-PCS; 2018-10-09)
DX: K68.11 Postprocedural retroperitoneal abscess (principal); D64.9 Anemia, unspecified; M54.9 Dorsalgia, unspecified; H54.7 Unspecified visual loss; I25.10 Atherosclerotic heart disease of native coronary artery without angina pectoris; E78.00 Pure hypercholesterolemia, unspecified; I10 Essential (primary) hypertension; G47.30 Sleep apnea, unspecified; F41.9 Anxiety disorder, unspecified; E11.9 Type 2 diabetes mellitus without complications; E53.8 Deficiency of other specified B group vitamins; Z98.1 Arthrodesis status; Z98.84 Bariatric surgery status; Z88.5 Allergy status to narcotic agent; Z79.82 Long term (current) use of aspirin; Z79.891 Long term (current) use of opiate analgesic; Z95.5 Presence of coronary angioplasty implant and graft; Z90.49 Acquired absence of other specified parts of digestive tract; Y83.8 Other surgical procedures as the cause of abnormal reaction of the patient, or of later complication, without mention of misadventure at the time of the procedure
CPT/HCPCS: 36415 ×2; 36430; 49020; 80053; 85027; 86850; 86900; 86901; 86920; 86922; 87070; 87075; 87077 ×2; 87186 ×2; 87205; 96361 ×3; 96365; 96367; 96372 ×2; 96376; A9270 ×8; G0378 ×2; J0171; J0330; J1100 ×2; J1335; J1650 ×2; J2185; J2250; J2405; J2543; J2704; J2710; J2795; J3010; J3411; J3490; J7030 ×4; J7050; J7120; P9016 ×2; 74177; 85025; C1751; J0696; J1642; Q9967

== ENCOUNTER 2021-03-01 12:09 | Emergency (ER) | payer MEDICARE ==
[2013-02-09 07:52] VITALS: BP 142/81
== END 2021-03-01 12:55 | disposition left against medical advice (07) ==
LOC: JP.ED 12:09
DX: Z53.21 Procedure and treatment not carried out due to patient leaving prior to being seen by health care provider (principal)

== ENCOUNTER 2021-03-24 12:45 | Emergency (ER) | payer MEDICARE ==
[2013-02-09 07:52] VITALS: BP 142/81
== END 2021-03-24 14:16 | disposition left against medical advice (07) ==
LOC: JP.ED 12:45
DX: R42 Dizziness and giddiness (principal); Z53.21 Procedure and treatment not carried out due to patient leaving prior to being seen by health care provider

== ENCOUNTER 2021-04-20 09:34 | Inpatient (IN) | payer MEDICARE ==
[2021-04-20 10:31] LABS: CORONAVIRUS COVID-19 NAA NEGATIVE (NEGATIVE)
[2021-04-20] MEDS ORDERED: Sodium Chloride 0.9% 1,000 ML IV SCH (10:45)
[2021-04-20] MEDS ORDERED: Iopamidol 612 MG/ML 500 ML Multipack Bottle IV ONE (11:22)
[2021-04-20] MEDS ORDERED: HYDROmorphone 0.5 MG/0.5 ML Syringe IVPUSH ONE (14:08)
[2021-04-20] MEDS ORDERED: Pantoprazole 40 MG Vial IVPUSH SCH (14:30)
[2021-04-20] MEDS ORDERED: LORazepam 2 MG/ML SDV IVPUSH PRN (14:57)
[2021-04-20] MEDS ORDERED: Ondansetron 4 MG Tab.DIS PO PRN (14:57)
[2021-04-20] MEDS ORDERED: Acetaminophen 650 MG Supp RECTAL PRN (14:57)
[2021-04-20] MEDS ORDERED: Magnesium Hydroxide 400 MG/5 ML Susp 30 ML Cup PO PRN (14:57)
[2021-04-20] MEDS ORDERED: Acetaminophen 325 MG Tab PO PRN (14:57)
[2021-04-20] MEDS ORDERED: Ondansetron 4 MG/2 ML SDV IV PRN (14:57)
[2021-04-20] MEDS ORDERED: Pantoprazole 40 MG Vial IVPUSH ONE (15:00)
[2021-04-20] MEDS ORDERED: MVI, Adult with Vitamin K 10 ML, Thiamine 100 MG, Folic Acid 1 MG, Magnesium Sulfate 3 ... IV ONE ×5 (16:00)
[2021-04-20] MEDS: Metoprolol Tartrate 50 MG Tab PO SCH (20:14)
[2021-04-20] MEDS: Melatonin 3 MG Tab PO SCH (20:14)
[2021-04-20] MEDS: HYDROmorphone 0.5 MG/0.5 ML Syringe IVPUSH PRN (20:26)
[2021-04-21] MEDS: Pantoprazole 40 MG Vial IV SCH ×2 (01:26→13:49)
[2021-04-21] MEDS: oxyCODONE 5 MG Tab PO PRN ×2 (06:15→18:15)
[2021-04-21] MEDS: Aspirin 81 MG Tab.EC PO SCH (09:37)
[2021-04-21] MEDS: amLODIPine 5 MG Tab PO SCH (09:37)
[2021-04-21] MEDS: Metoprolol Tartrate 50 MG Tab PO SCH ×2 (09:37→20:55)
[2021-04-21] MEDS: atorvaSTATin 20 MG Tab PO SCH (09:37)
[2021-04-21] MEDS: FLUoxetine 20 MG Cap PO SCH (09:38)
[2021-04-21] MEDS: Lisinopril 20 MG Tab PO SCH (09:38)
[2021-04-21] MEDS: HYDROmorphone 0.5 MG/0.5 ML Syringe IVPUSH PRN (12:21)
[2021-04-21] MEDS ORDERED: Polyethylene Glycol 3350 Powder 119 GM Bottle PO ONE (13:00)
[2021-04-21] MEDS ORDERED: Bisacodyl 5 MG Tab PO ONE (13:00)
[2021-04-21] MEDS: Melatonin 3 MG Tab PO SCH (20:55)
[2021-04-22] MEDS: Pantoprazole 40 MG Vial IV SCH (02:33)
[2021-04-22] MEDS: HYDROmorphone 0.5 MG/0.5 ML Syringe IVPUSH PRN ×3 (02:40→15:46)
[2021-04-22] MEDS: Lisinopril 20 MG Tab PO SCH ×2 (08:51→11:28)
[2021-04-22] MEDS: atorvaSTATin 20 MG Tab PO SCH ×2 (08:51→11:28)
[2021-04-22] MEDS: amLODIPine 5 MG Tab PO SCH ×2 (08:51→11:28)
[2021-04-22] MEDS: Aspirin 81 MG Tab.EC PO SCH (08:51)
[2021-04-22] MEDS: FLUoxetine 20 MG Cap PO SCH ×2 (08:52→11:28)
[2021-04-22] MEDS: Metoprolol Tartrate 50 MG Tab PO SCH ×2 (08:53→20:06)
[2021-04-22] MEDS ORDERED: fentaNYL 100 MCG/2 ML SDV ONE (08:54)
[2021-04-22] MEDS ORDERED: Propofol 200 MG/20 ML SDV ONE (08:54)
[2021-04-22] MEDS ORDERED: Midazolam 1 MG/ML 2 ML SDV ONE (08:54)
[2021-04-22] MEDS ORDERED: Lactated Ringers 1,000 ML IV SCH (09:15)
[2021-04-22] MEDS ORDERED: Sodium Ferric Gluconate Cmplex 125 MG in Sodium Chloride 0.9% 100 ML IV ONE (16:30)
[2021-04-22] MEDS: Pantoprazole 40 MG Tab.CR PO SCH (16:31)
[2021-04-22] MEDS: oxyCODONE 5 MG Tab PO PRN (20:06)
[2021-04-22] MEDS: Melatonin 3 MG Tab PO SCH (20:06)
[2021-04-23] MEDS: oxyCODONE 5 MG Tab PO PRN ×2 (02:45→08:01)
[2021-04-23] MEDS: Pantoprazole 40 MG Tab.CR PO SCH (08:03)
[2021-04-23] MEDS: FLUoxetine 20 MG Cap PO SCH (08:04)
[2021-04-23] MEDS: atorvaSTATin 20 MG Tab PO SCH (08:04)
[2021-04-23] MEDS: Aspirin 81 MG Tab.EC PO SCH (08:04)
[2021-04-23] MEDS: Lisinopril 20 MG Tab PO SCH (08:05)
[2021-04-23] MEDS: amLODIPine 5 MG Tab PO SCH (08:05)
[2021-04-23] MEDS: Metoprolol Tartrate 50 MG Tab PO SCH (08:07)
[2021-04-23 10:50] VITALS: BP 145/65; PULSE 57
[2021-04-23] MEDS: HYDROmorphone 0.5 MG/0.5 ML Syringe IVPUSH PRN (10:59)
== END 2021-04-23 13:00 | disposition home or self-care (01) | DRG 378 ==
LOC: JP.ED 09:34 → JP.MS 14:19
PROVIDERS: ADMIT Internal Medicine; ATTEND Internal Medicine
PROC: 0DJ08ZZ Inspection of Upper Intestinal Tract, Via Natural or Artificial Opening Endoscopic (ICD-10-PCS; principal; 2021-04-20)
PROC: 30233N1 Transfusion of Nonautologous Red Blood Cells into Peripheral Vein, Percutaneous Approach (ICD-10-PCS; 2021-04-20)
PROC: 0DJD8ZZ Inspection of Lower Intestinal Tract, Via Natural or Artificial Opening Endoscopic (ICD-10-PCS; 2021-04-22)
DX: K92.2 Gastrointestinal hemorrhage, unspecified (principal); D62 Acute posthemorrhagic anemia; Z98.84 Bariatric surgery status; M25.552 Pain in left hip; Z91.81 History of falling; M54.50 Low back pain, unspecified; I25.10 Atherosclerotic heart disease of native coronary artery without angina pectoris; G89.29 Other chronic pain; Z20.822 Contact with and (suspected) exposure to COVID-19; G47.30 Sleep apnea, unspecified; H54.7 Unspecified visual loss; E78.00 Pure hypercholesterolemia, unspecified; I10 Essential (primary) hypertension; F41.9 Anxiety disorder, unspecified; Z88.6 Allergy status to analgesic agent; Z79.02 Long term (current) use of antithrombotics/antiplatelets; E11.9 Type 2 diabetes mellitus without complications; E53.8 Deficiency of other specified B group vitamins; Z88.5 Allergy status to narcotic agent; Z79.899 Other long term (current) drug therapy; Z79.82 Long term (current) use of aspirin; Z90.49 Acquired absence of other specified parts of digestive tract; Z95.5 Presence of coronary angioplasty implant and graft
CPT/HCPCS: 0241U; 36415; 36430; 74177; 80048; 80053; 80307; 82272; 82947; 84484; 85018; 85025; 85027; 86850; 86900; 86901; 86920; 86922; 96374; 96375; 99223; 99232; 99238; 99285; A9270-GY; C9113; J1170; J2250; J2704; J2916; J3010; J3411; J3475; J3490; J7030; J7120; P9016; Q9967

== ENCOUNTER 2022-10-31 10:48 | Inpatient (IN) | payer MEDICARE ==
[2022-10-31 11:35] LABS: BASOPHILS ABSOLUTE AUTO 0.01 K/uL (0.00-0.10); BASOPHILS PERCENT AUTO 0.1 % (0.1-1.3); HEMATOCRIT 37.4 % (38.4-49.7); HEMOGLOBIN 13.3 g/dL (12.9-16.9); IMMATURE GRAN ABSOLUTE AUTO 0.02 K/uL (0.00-0.23); IMMATURE GRAN PERCENT AUTO 0.3 % (0.0-0.7); LYMPHOCYTES ABSOLUTE AUTO 1.13 K/uL (0.8-3.3); LYMPHOCYTES PERCENT AUTO 14.7 % (11.4-47.7); MEAN CORPUSCULAR HEMOGLOBIN 31.1 pg (31.6-35.5); MEAN CORPUSCULAR HGB CONC 35.6 g/dL (31.6-35.5); MEAN CORPUSCULAR VOLUME 87.6 fL (81.4-99.0); MONOCYTES ABSOLUTE AUTO 0.51 K/uL (0.20-0.90); MONOCYTES PERCENT AUTO 6.6 % (3.3-12.6); NEUTROPHILS ABSOLUTE AUTO 6.01 K/uL (1.0-7.6); NEUTROPHILS PERCENT AUTO 78.3 % (40.0-78.1); PLATELET COUNT,PLT 217 K/uL (130-375); RED BLOOD CELL COUNT 4.27 M/uL (4.14-5.76); WHITE BLOOD CELL COUNT,WBC 7.7 K/uL (3.2-11.0)
[2022-10-31 11:55] LABS: A/G RATIO 0.9 (1.2-2.2); ALANINE AMINOTRANSFERASE,ALT 71 U/L (12-78); ALBUMIN 3.1 g/dL (3.4-5.0); ALKALINE PHOSPHATASE 67 U/L (46-116); ASPARTATE AMNIOTRANSFERASE,AST 304 U/L (15-37); BILIRUBIN TOTAL 1.1 mg/dL (0.2-1.0); BLOOD UREA NITROGEN,BUN 6 mg/dL (7-18); CALCIUM 8.6 mg/dL (8.5-10.1); CARBON DIOXIDE,CO2 22 mmol/L (21-32); CHLORIDE,CL 98 mmol/L (100-108); CREATININE 0.7 mg/dL (0.8-1.3); ESTIMATED GFR 105 mL/min (>60); GLUCOSE RANDOM 134 mg/dL (74-106); POTASSIUM,K 3.4 mmol/L (3.6-5.2); PROTEIN TOTAL,TP 6.4 g/dL (6.4-8.2); SODIUM,NA 136 mmol/L (140-148)
[2022-10-31 11:56] LABS: ANION GAP 19.4 mmol/L (5.0-14.0)
[2022-10-31 14:21] LABS: AMPHETAMINES SCREEN, URINE NEGATIVE (NEGATIVE); BARBITURATE SCREEN,URINE NEGATIVE (NEGATIVE); BENZODIAZEPINES SCREEN,URINE NEGATIVE (NEGATIVE); METHADONE SCREEN, URINE NEGATIVE (NEGATIVE); METHAMPHETAMINES SCREEN, URINE NEGATIVE (NEGATIVE); OXYCODONE SCREEN,URINE NEGATIVE (NEGATIVE); PROPOXYPHENE SCREEN,URINE NEGATIVE (NEGATIVE); THC SCREEN,URINE 50 NG/ML NEGATIVE (NEGATIVE)
[2022-10-31 14:22] LABS: APPEARANCE,URINE CLEAR (CLEAR); BILIRUBIN,URINE SMALL (NEGATIVE); COLOR,URINE YELLOW (YELLOW); GLUCOSE,URINE NEGATIVE (NEGATIVE); KETONES,URINE >=160 mg/dL (NEGATIVE); LEUKOCYTE ESTERASE,URINE NEGATIVE (NEGATIVE); NITRITE,URINE NEGATIVE (NEGATIVE); OCCULT BLOOD,URINE NEGATIVE (NEGATIVE); PROTEIN,URINE 30 mg/dL (NEGATIVE)
[2022-10-31 14:29] LABS: AMORPHOUS SEDIMENT,URINE NOT SEEN; BACTERIA,URINE FEW; EPITHELIAL CELLS,URINE RARE; MUCUS,URINE RARE; RBC,URINE 0-5 (0-5); WBC,URINE 0-5 (0-5)
[2022-10-31] MEDS ORDERED: Sodium Chloride 0.9% 1,000 ML IV SCH (15:00)
[2022-10-31] MEDS ORDERED: Sennosides/Docusate Sodium 50-8.6 MG Tab PO PRN (18:07)
[2022-10-31] MEDS ORDERED: Ondansetron 4 MG/2 ML SDV IV PRN (18:07)
[2022-10-31] MEDS ORDERED: Magnesium Hydroxide 400 MG/5 ML Susp 30 ML Cup PO PRN (18:07)
[2022-10-31] MEDS ORDERED: Ondansetron 4 MG Tab.DIS PO PRN (18:07)
[2022-10-31] MEDS: Rosuvastatin 10 MG Tab PO SCH (20:20)
[2022-10-31] MEDS: Metoprolol Tartrate 50 MG Tab PO SCH (20:21)
[2022-10-31] MEDS: traZODone 50 MG Tab PO SCH (20:21)
[2022-10-31] MEDS: Acetaminophen/oxyCODONE 325-10 MG Tab PO SCH (20:22)
[2022-10-31] MEDS: Sodium Chloride 0.9% 1,000 ML IV SCH (22:13)
[2022-11-01 06:02] LABS: HEMOGLOBIN A1C 5.9 % (4.5-6.2)
[2022-11-01 06:12] LABS: A/G RATIO 0.9 (1.2-2.2); ALANINE AMINOTRANSFERASE,ALT 56 U/L (12-78); ALBUMIN 2.5 g/dL (3.4-5.0); ALKALINE PHOSPHATASE 53 U/L (46-116); ASPARTATE AMNIOTRANSFERASE,AST 177 U/L (15-37); BILIRUBIN TOTAL 0.4 mg/dL (0.2-1.0); BLOOD UREA NITROGEN,BUN 8 mg/dL (7-18); CALCIUM 7.5 mg/dL (8.5-10.1); CARBON DIOXIDE,CO2 28 mmol/L (21-32); CHLORIDE,CL 104 mmol/L (100-108); CHOLESTEROL HDL 46 mg/dL (40-60); CHOLESTEROL LDL DIRECT 74 mg/dL (0-100); CHOLESTEROL TOTAL 132 mg/dL (0-200); CREATININE 0.6 mg/dL (0.8-1.3); EST CRCL DRUG DOSING (CG) 130.93 mL/min; ESTIMATED GFR 111 mL/min (>60); GLUCOSE RANDOM 135 mg/dL (74-106); POTASSIUM,K 3.5 mmol/L (3.6-5.2); PROTEIN TOTAL,TP 5.2 g/dL (6.4-8.2); SODIUM,NA 138 mmol/L (140-148); TRIGLYCERIDES 50 mg/dL (15-150)
[2022-11-01 06:15] LABS: ANION GAP 9.5 mmol/L (5.0-14.0)
[2022-11-01] MEDS: Sodium Chloride 0.9% 1,000 ML IV SCH ×2 (06:34→22:30)
[2022-11-01] MEDS: metFORMIN 500 MG Tab PO SCH ×2 (07:35→15:44)
[2022-11-01] MEDS: Clopidogrel 75 MG Tab PO SCH (08:41)
[2022-11-01] MEDS: FLUoxetine 20 MG Cap PO SCH (08:41)
[2022-11-01] MEDS: Acetaminophen/oxyCODONE 325-10 MG Tab PO SCH ×2 (08:41→21:02)
[2022-11-01] MEDS: Aspirin 81 MG Tab.EC PO SCH (08:41)
[2022-11-01] MEDS: Metoprolol Tartrate 50 MG Tab PO SCH ×3 (08:43→20:50)
[2022-11-01] MEDS: Lisinopril 20 MG Tab PO SCH (08:43)
[2022-11-01] MEDS ORDERED: Potassium Chloride 20 MEQ Tab.ER PO ONE (09:00)
[2022-11-01] MEDS: traZODone 50 MG Tab PO SCH (21:03)
[2022-11-01] MEDS: Rosuvastatin 10 MG Tab PO SCH (21:03)
[2022-11-02] MEDS: Sodium Chloride 0.9% 1,000 ML IV SCH (06:27)
[2022-11-02] MEDS: metFORMIN 500 MG Tab PO SCH ×2 (07:11→16:51)
[2022-11-02] MEDS: Metoprolol Tartrate 50 MG Tab PO SCH ×2 (07:59→21:23)
[2022-11-02] MEDS: Aspirin 81 MG Tab.EC PO SCH (08:00)
[2022-11-02] MEDS: Acetaminophen/oxyCODONE 325-10 MG Tab PO SCH ×2 (08:00→21:23)
[2022-11-02] MEDS: Clopidogrel 75 MG Tab PO SCH (08:00)
[2022-11-02] MEDS: FLUoxetine 20 MG Cap PO SCH (08:00)
[2022-11-02] MEDS: Lisinopril 20 MG Tab PO SCH (08:00)
[2022-11-02] MEDS: amLODIPine 5 MG Tab PO SCH (09:20)
[2022-11-02] MEDS: Rosuvastatin 10 MG Tab PO SCH (21:23)
[2022-11-02] MEDS: traZODone 50 MG Tab PO SCH (21:23)
[2022-11-03 06:10] LABS: CREATININE 0.6 mg/dL (0.8-1.3); EST CRCL DRUG DOSING (CG) 130.93 mL/min; POTASSIUM,K 3.5 mmol/L (3.6-5.2)
[2022-11-03 06:26] LABS: ANION GAP 12.5 mmol/L (5.0-14.0)
[2022-11-03] MEDS ORDERED: Potassium Chloride 20 MEQ Tab.ER PO ONE (08:13)
[2022-11-03] MEDS: Lisinopril 20 MG Tab PO SCH (08:15)
[2022-11-03] MEDS: metFORMIN 500 MG Tab PO SCH ×2 (08:15→17:39)
[2022-11-03] MEDS: Aspirin 81 MG Tab.EC PO SCH (08:15)
[2022-11-03] MEDS: FLUoxetine 20 MG Cap PO SCH (08:16)
[2022-11-03] MEDS: Clopidogrel 75 MG Tab PO SCH (08:16)
[2022-11-03] MEDS: amLODIPine 5 MG Tab PO SCH (08:16)
[2022-11-03] MEDS: Metoprolol Tartrate 50 MG Tab PO SCH ×2 (08:17→20:02)
[2022-11-03] MEDS: Acetaminophen/oxyCODONE 325-10 MG Tab PO SCH ×2 (08:21→20:05)
[2022-11-03] MEDS: Rosuvastatin 10 MG Tab PO SCH (20:02)
[2022-11-03] MEDS: traZODone 50 MG Tab PO SCH (20:03)
[2022-11-04] MEDS: metFORMIN 500 MG Tab PO SCH ×2 (07:23→17:02)
[2022-11-04] MEDS: Lisinopril 20 MG Tab PO SCH (08:32)
[2022-11-04] MEDS: Clopidogrel 75 MG Tab PO SCH (08:32)
[2022-11-04] MEDS: amLODIPine 5 MG Tab PO SCH (08:32)
[2022-11-04] MEDS: FLUoxetine 20 MG Cap PO SCH (08:33)
[2022-11-04] MEDS: Metoprolol Tartrate 50 MG Tab PO SCH ×2 (08:33→20:46)
[2022-11-04] MEDS: Aspirin 81 MG Tab.EC PO SCH (08:33)
[2022-11-04] MEDS: Acetaminophen/oxyCODONE 325-10 MG Tab PO SCH ×2 (09:00→20:49)
[2022-11-04] MEDS: Rosuvastatin 10 MG Tab PO SCH (20:44)
[2022-11-04] MEDS: traZODone 50 MG Tab PO SCH (20:44)
[2022-11-05 05:10] LABS: HEMATOCRIT 33.4 % (38.4-49.7); HEMOGLOBIN 11.4 g/dL (12.9-16.9); MEAN CORPUSCULAR HEMOGLOBIN 30.9 pg (31.6-35.5); MEAN CORPUSCULAR HGB CONC 34.1 g/dL (31.6-35.5); MEAN CORPUSCULAR VOLUME 90.5 fL (81.4-99.0); RED BLOOD CELL COUNT 3.69 M/uL (4.14-5.76); WHITE BLOOD CELL COUNT,WBC 7.3 K/uL (3.2-11.0)
[2022-11-05 05:32] LABS: A/G RATIO 0.9 (1.2-2.2); ALANINE AMINOTRANSFERASE,ALT 47 U/L (12-78); ALBUMIN 2.7 g/dL (3.4-5.0); ALKALINE PHOSPHATASE 51 U/L (46-116); ANION GAP 6.6 mmol/L (5.0-14.0); ASPARTATE AMNIOTRANSFERASE,AST 54 U/L (15-37); BILIRUBIN TOTAL 0.5 mg/dL (0.2-1.0); BLOOD UREA NITROGEN,BUN 11 mg/dL (7-18); CARBON DIOXIDE,CO2 29 mmol/L (21-32); CHLORIDE,CL 105 mmol/L (100-108); CREATININE 0.6 mg/dL (0.8-1.3); EST CRCL DRUG DOSING (CG) 130.49 mL/min; ESTIMATED GFR 111 mL/min (>60); GLUCOSE RANDOM 103 mg/dL (74-106); POTASSIUM,K 3.6 mmol/L (3.6-5.2); PROTEIN TOTAL,TP 5.6 g/dL (6.4-8.2); SODIUM,NA 141 mmol/L (140-148)
[2022-11-05] MEDS: metFORMIN 500 MG Tab PO SCH ×2 (08:31→16:58)
[2022-11-05] MEDS: Lisinopril 20 MG Tab PO SCH (08:31)
[2022-11-05] MEDS: amLODIPine 5 MG Tab PO SCH (08:31)
[2022-11-05] MEDS: Metoprolol Tartrate 50 MG Tab PO SCH ×2 (08:31→21:12)
[2022-11-05] MEDS: Aspirin 81 MG Tab.EC PO SCH (08:32)
[2022-11-05] MEDS: FLUoxetine 20 MG Cap PO SCH (08:32)
[2022-11-05] MEDS: Clopidogrel 75 MG Tab PO SCH (08:32)
[2022-11-05] MEDS: Acetaminophen/oxyCODONE 325-10 MG Tab PO SCH ×2 (08:37→21:11)
[2022-11-05] MEDS: Rosuvastatin 10 MG Tab PO SCH (21:12)
[2022-11-05] MEDS: traZODone 50 MG Tab PO SCH (21:12)
[2022-11-06] MEDS: Aspirin 81 MG Tab.EC PO SCH (08:08)
[2022-11-06] MEDS: Clopidogrel 75 MG Tab PO SCH (08:08)
[2022-11-06] MEDS: amLODIPine 5 MG Tab PO SCH (08:08)
[2022-11-06] MEDS: Metoprolol Tartrate 50 MG Tab PO SCH ×2 (08:08→20:25)
[2022-11-06] MEDS: FLUoxetine 20 MG Cap PO SCH (08:08)
[2022-11-06] MEDS: metFORMIN 500 MG Tab PO SCH ×2 (08:08→17:10)
[2022-11-06] MEDS: Lisinopril 20 MG Tab PO SCH (08:09)
[2022-11-06] MEDS: Acetaminophen/oxyCODONE 325-10 MG Tab PO SCH ×2 (08:11→20:24)
[2022-11-06] MEDS: Rosuvastatin 10 MG Tab PO SCH (20:24)
[2022-11-06] MEDS: traZODone 50 MG Tab PO SCH (20:24)
[2022-11-07 05:42] LABS: HEMATOCRIT 32.8 % (38.4-49.7); HEMOGLOBIN 11.4 g/dL (12.9-16.9); MEAN CORPUSCULAR HEMOGLOBIN 31.8 pg (31.6-35.5); MEAN CORPUSCULAR HGB CONC 34.8 g/dL (31.6-35.5); MEAN CORPUSCULAR VOLUME 91.4 fL (81.4-99.0); RED BLOOD CELL COUNT 3.59 M/uL (4.14-5.76)
[2022-11-07 05:54] LABS: CALCIUM 8.2 mg/dL (8.5-10.1); CREATININE 0.5 mg/dL (0.8-1.3); EST CRCL DRUG DOSING (CG) 156.58 mL/min; POTASSIUM,K 3.7 mmol/L (3.6-5.2)
[2022-11-07 06:12] LABS: ANION GAP 9.7 mmol/L (5.0-14.0)
[2022-11-07] MEDS: Aspirin 81 MG Tab.EC PO SCH (08:13)
[2022-11-07] MEDS: metFORMIN 500 MG Tab PO SCH ×2 (08:13→17:18)
[2022-11-07] MEDS: Clopidogrel 75 MG Tab PO SCH (08:13)
[2022-11-07] MEDS: FLUoxetine 20 MG Cap PO SCH (08:14)
[2022-11-07] MEDS: Lisinopril 20 MG Tab PO SCH (08:15)
[2022-11-07] MEDS: amLODIPine 5 MG Tab PO SCH (08:15)
[2022-11-07] MEDS: Metoprolol Tartrate 50 MG Tab PO SCH ×2 (08:15→21:43)
[2022-11-07] MEDS: Acetaminophen/oxyCODONE 325-10 MG Tab PO SCH ×2 (08:19→21:42)
[2022-11-07] MEDS: traZODone 50 MG Tab PO SCH (21:39)
[2022-11-07] MEDS: Rosuvastatin 10 MG Tab PO SCH (21:39)
[2022-11-08] MEDS: Aspirin 81 MG Tab.EC PO SCH (08:12)
[2022-11-08] MEDS: metFORMIN 500 MG Tab PO SCH ×2 (08:12→17:13)
[2022-11-08] MEDS: amLODIPine 5 MG Tab PO SCH (08:13)
[2022-11-08] MEDS: Metoprolol Tartrate 50 MG Tab PO SCH ×2 (08:13→20:07)
[2022-11-08] MEDS: Lisinopril 20 MG Tab PO SCH (08:14)
[2022-11-08] MEDS: Clopidogrel 75 MG Tab PO SCH (08:14)
[2022-11-08] MEDS: FLUoxetine 20 MG Cap PO SCH (08:15)
[2022-11-08] MEDS: Acetaminophen/oxyCODONE 325-10 MG Tab PO SCH ×2 (08:18→20:07)
[2022-11-08] MEDS: Melatonin 3 MG Tab PO PRN (19:23)
[2022-11-08] MEDS: Rosuvastatin 10 MG Tab PO SCH (20:07)
[2022-11-08] MEDS: traZODone 50 MG Tab PO SCH (20:08)
[2022-11-09] MEDS: metFORMIN 500 MG Tab PO SCH ×2 (07:04→16:42)
[2022-11-09] MEDS: Lisinopril 20 MG Tab PO SCH (08:22)
[2022-11-09] MEDS: FLUoxetine 20 MG Cap PO SCH (08:22)
[2022-11-09] MEDS: Aspirin 81 MG Tab.EC PO SCH (08:22)
[2022-11-09] MEDS: amLODIPine 5 MG Tab PO SCH (08:22)
[2022-11-09] MEDS: Clopidogrel 75 MG Tab PO SCH (08:23)
[2022-11-09] MEDS: Metoprolol Tartrate 50 MG Tab PO SCH ×3 (08:23→20:40)
[2022-11-09] MEDS: Acetaminophen/oxyCODONE 325-10 MG Tab PO SCH ×2 (08:27→20:00)
[2022-11-09] MEDS: Melatonin 3 MG Tab PO PRN (19:30)
[2022-11-09] MEDS: traZODone 50 MG Tab PO SCH (20:00)
[2022-11-09] MEDS: Rosuvastatin 10 MG Tab PO SCH (20:00)
[2022-11-10] MEDS: Acetaminophen 325 MG Tab PO PRN (03:19)
[2022-11-10] MEDS: FLUoxetine 20 MG Cap PO SCH (09:32)
[2022-11-10] MEDS: Metoprolol Tartrate 50 MG Tab PO SCH ×2 (09:33→20:32)
[2022-11-10] MEDS: Aspirin 81 MG Tab.EC PO SCH (09:33)
[2022-11-10] MEDS: amLODIPine 5 MG Tab PO SCH (09:33)
[2022-11-10] MEDS: metFORMIN 500 MG Tab PO SCH ×2 (09:33→16:13)
[2022-11-10] MEDS: Lisinopril 20 MG Tab PO SCH (09:33)
[2022-11-10] MEDS: Clopidogrel 75 MG Tab PO SCH (09:34)
[2022-11-10] MEDS: Acetaminophen/oxyCODONE 325-10 MG Tab PO SCH ×2 (09:35→20:31)
[2022-11-10] MEDS: Rosuvastatin 10 MG Tab PO SCH (20:31)
[2022-11-10] MEDS: traZODone 50 MG Tab PO SCH (20:31)
[2022-11-11] MEDS: metFORMIN 500 MG Tab PO SCH ×2 (08:38→17:33)
[2022-11-11] MEDS: Clopidogrel 75 MG Tab PO SCH (08:40)
[2022-11-11] MEDS: Aspirin 81 MG Tab.EC PO SCH (08:40)
[2022-11-11] MEDS: FLUoxetine 20 MG Cap PO SCH (08:40)
[2022-11-11] MEDS: Acetaminophen/oxyCODONE 325-10 MG Tab PO SCH ×2 (08:43→20:31)
[2022-11-11] MEDS: Lisinopril 20 MG Tab PO SCH (09:23)
[2022-11-11] MEDS: amLODIPine 5 MG Tab PO SCH (09:23)
[2022-11-11] MEDS: Metoprolol Tartrate 50 MG Tab PO SCH ×2 (09:23→20:33)
[2022-11-11] MEDS: Rosuvastatin 10 MG Tab PO SCH (20:32)
[2022-11-11] MEDS: traZODone 50 MG Tab PO SCH (20:32)
[2022-11-12] MEDS: amLODIPine 5 MG Tab PO SCH (08:06)
[2022-11-12] MEDS: Clopidogrel 75 MG Tab PO SCH (08:06)
[2022-11-12] MEDS: Lisinopril 20 MG Tab PO SCH (08:06)
[2022-11-12] MEDS: FLUoxetine 20 MG Cap PO SCH (08:07)
[2022-11-12] MEDS: Aspirin 81 MG Tab.EC PO SCH (08:07)
[2022-11-12] MEDS: Acetaminophen/oxyCODONE 325-10 MG Tab PO SCH ×2 (08:10→20:22)
[2022-11-12] MEDS: metFORMIN 500 MG Tab PO SCH ×2 (08:11→16:33)
[2022-11-12] MEDS: Metoprolol Tartrate 50 MG Tab PO SCH (08:55)
[2022-11-12] MEDS: Rosuvastatin 10 MG Tab PO SCH (20:22)
[2022-11-12] MEDS: traZODone 50 MG Tab PO SCH (20:22)
[2022-11-13] MEDS: metFORMIN 500 MG Tab PO SCH ×2 (08:35→16:45)
[2022-11-13] MEDS: Lisinopril 20 MG Tab PO SCH (08:36)
[2022-11-13] MEDS: Clopidogrel 75 MG Tab PO SCH (08:36)
[2022-11-13] MEDS: Aspirin 81 MG Tab.EC PO SCH (08:36)
[2022-11-13] MEDS: FLUoxetine 20 MG Cap PO SCH (08:36)
[2022-11-13] MEDS: Acetaminophen/oxyCODONE 325-10 MG Tab PO SCH ×2 (08:40→20:15)
[2022-11-13] MEDS: amLODIPine 5 MG Tab PO SCH (08:40)
[2022-11-13] MEDS: Rosuvastatin 10 MG Tab PO SCH (20:15)
[2022-11-13] MEDS: traZODone 50 MG Tab PO SCH (20:15)
[2022-11-14] MEDS: metFORMIN 500 MG Tab PO SCH ×2 (07:40→16:23)
[2022-11-14] MEDS: Aspirin 81 MG Tab.EC PO SCH (08:15)
[2022-11-14] MEDS: amLODIPine 5 MG Tab PO SCH (08:15)
[2022-11-14] MEDS: Clopidogrel 75 MG Tab PO SCH (08:16)
[2022-11-14] MEDS: FLUoxetine 20 MG Cap PO SCH (08:16)
[2022-11-14] MEDS: Lisinopril 20 MG Tab PO SCH (08:17)
[2022-11-14] MEDS: Acetaminophen/oxyCODONE 325-10 MG Tab PO SCH ×2 (08:24→20:26)
[2022-11-14] MEDS: Acetaminophen 325 MG Tab PO PRN (16:23)
[2022-11-14] MEDS: traZODone 50 MG Tab PO SCH (20:26)
[2022-11-14] MEDS: Rosuvastatin 10 MG Tab PO SCH (20:26)
[2022-11-15 05:52] VITALS: BP 138/68; PULSE 46
[2022-11-15] MEDS: metFORMIN 500 MG Tab PO SCH (07:13)
[2022-11-15] MEDS: amLODIPine 5 MG Tab PO SCH (08:19)
[2022-11-15] MEDS: Clopidogrel 75 MG Tab PO SCH (08:19)
[2022-11-15] MEDS: Acetaminophen/oxyCODONE 325-10 MG Tab PO SCH (08:19)
[2022-11-15] MEDS: Lisinopril 20 MG Tab PO SCH (08:19)
[2022-11-15] MEDS: FLUoxetine 20 MG Cap PO SCH (08:19)
[2022-11-15] MEDS: Aspirin 81 MG Tab.EC PO SCH (08:19)
== END 2022-11-15 09:30 | disposition home or self-care (01) | DRG 65 ==
LOC: JP.ED 10:48 → JP.MS 16:47
PROVIDERS: ADMIT Internal Medicine; ATTEND Internal Medicine
DX: I63.89 Other cerebral infarction (principal); G93.40 Encephalopathy, unspecified; E86.0 Dehydration; E11.42 Type 2 diabetes mellitus with diabetic polyneuropathy; M54.50 Low back pain, unspecified; G89.29 Other chronic pain; H53.453 Other localized visual field defect, bilateral; I10 Essential (primary) hypertension; R00.1 Bradycardia, unspecified; I25.10 Atherosclerotic heart disease of native coronary artery without angina pectoris; G47.30 Sleep apnea, unspecified; Z20.822 Contact with and (suspected) exposure to COVID-19; F10.20 Alcohol dependence, uncomplicated; F41.9 Anxiety disorder, unspecified; E78.00 Pure hypercholesterolemia, unspecified; E53.8 Deficiency of other specified B group vitamins; E66.9 Obesity, unspecified; E11.9 Type 2 diabetes mellitus without complications; Z79.02 Long term (current) use of antithrombotics/antiplatelets; Z88.5 Allergy status to narcotic agent; Z90.49 Acquired absence of other specified parts of digestive tract; Z68.25 Body mass index [BMI] 25.0-25.9, adult; Z79.82 Long term (current) use of aspirin; Z79.84 Long term (current) use of oral hypoglycemic drugs; Z79.899 Other long term (current) drug therapy; Z98.84 Bariatric surgery status; Z79.01 Long term (current) use of anticoagulants; Z95.1 Presence of aortocoronary bypass graft; Z95.5 Presence of coronary angioplasty implant and graft; Z86.73 Personal history of transient ischemic attack (TIA), and cerebral infarction without residual deficits
CPT/HCPCS: 36415; 70450 ×2; 70551 ×2; 80053; 80305; 81001; 85025; 96360; 96361; 99285 ×2; J7030; 80048; 80061; 83036; 85027; 93306; 96125-GO; 97110-GO; 97110-GP; 97112-GP; 97116-GP; 97161-GP; 97167-GO; 97530-GO; 97530-GP; 97535-GO; 99223; 99233; 99238; A9270-GY; U0002